=== PATIENT | female | born 1950 | race Caucasian/White ===

== ENCOUNTER 2017-01-15 13:51 | Inpatient (IN) ==
--- NOTE | 2017-01-15 13:57 | Emergency Department Note ---
Disposition Clinical Impression: Syncope Qualifiers: Syncope type: unspecified Qualified Code(s): R55 - Syncope and collapse Right fibular fracture Qualifiers: Encounter type: initial encounter Fibula location: distal Fracture type: closed Fracture morphology: unspecified fracture morphology Qualified Code(s): S82.831A - Other fracture of upper and lower end of right fibula, initial encounter for closed fracture Disposition: Admitted As Inpatient Condition: Good Reasons to Return/Additional Instructions: Take an additional calcium tablet twice a day. Return if you change your mind about admission. Referrals: NO,PCP [Primary Care Provider] - Forms: ED Satisfaction Letter Time of Disposition: 15:45 Syncope HPI - General Chief Complaint: ED Fall Stated Complaint: Fall Time Seen by Provider: 01/15/17 13:53 Source: patient, EMS Mode of arrival: EMS Limitations: no limitations Nursing Notes Reviewed: Yes Vital Signs Reviewed: Yes - History of Present Illness HPI Narrative: 66-year-old who was brushing her teeth and next thing she knows she wakes up on the floor the bathroom. She is injury to the right ankle and right knee. Unclear how long the patient was unconscious but it was a relatively short period of time. Has no history of this. She currently only complains of right knee and right ankle pain. 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 Prodromal Symptoms: none Witnessed: no Context: at rest Injuries Sustained Associated with Event: RLE Current Symptoms: none History: none Treatments prior to arrival: none Associated trauma secondary to event: Yes - Related Data Home Medications Medication Instructions Recorded Confirmed Budesonide [Entocort EC] 3 mg PO BID 11/30/15 06/27/16 Doxepin HCl 25 mg PO HS 11/30/15 06/27/16 Omeprazole [PriLOSEC] 20 mg PO DAILY 11/30/15 06/27/16 Lisinopril [Zestril] 10 mg PO DAILY 04/29/16 06/27/16 lamoTRIgine [Lamotrigine] 200 mg PO BID 04/29/16 06/27/16 Aspirin [Ecotrin] 325 mg PO DAILY 06/27/16 06/27/16 Dicyclomine [Bentyl] 10 mg PO QID 06/27/16 06/27/16 Venlafaxine XR (24 HR) [Effexor Xr] 150 mg PO HS 06/27/16 06/27/16 Zolpidem [Ambien] 10 mg PO HS PRN 06/27/16 06/27/16 Previous Rx's Medication Instructions Recorded Docusate [Colace] 100 mg PO BID #60 capsule 05/06/16 clonazePAM [Klonopin] 1 mg PO TID PRN #30 tablet 05/06/16 Aspirin Enteric Coated [Aspirin EC] 325 mg PO BID #42 tablet. 06/27/16 OxyCODONE Immed Rel [Roxicodone 5 5 - 10 mg PO Q6HR PRN #40 tablet 06/27/16 MG] Allergies Allergy/AdvReac Type Severity Reaction Status Date / Time celecoxib [From Celebrex] Allergy Rash Verified 06/27/16 14:52 All systems ED: reviewed and negative except as stated. Constitutional: Denies: fever, chills, weakness, weight change Eyes: Denies: eye pain, eye discharge, vision change ENT ED: Denies: ear pain, throat pain, dental pain, hearing loss, epistaxis, congestion, dysphagia Cardiovascular: Reports: syncope. Denies: chest pain, palpitations, dyspnea on exertion, edema Respiratory: Denies: cough, dyspnea, wheezes, hemoptysis, stridor Gastrointestinal: Denies: abdominal pain, nausea, vomiting, diarrhea, constipation, hematemesis, melena, hematochezia Genitourinary: Denies: dysuria, frequency, hematuria, discharge Musculoskeletal: Reports: arthralgia. Denies: back pain, neck pain, myalgia Integumentary: Denies: rash, abrasion, lesions Neurological: Denies: headache, weakness, numbness, paresthesias, confusion, abnormal gait, vertigo Psychiatric: Denies: anxiety, depression, suicidal thoughts, homicidal thoughts , auditory hallucinations, visual hallucinations Endocrine: Denies: fatigue Hematological/Lymphatic: Denies: easy bleeding, easy bruising Allergic/Immunologic: Denies: facial swelling, urticaria Past Medical History - Past Medical History Medical history: Reports: aortic aneurysm, arthritis, GERD, hypertension Surgical history: Reports: knee replacement, other Psychiatric history: Reports: bipolar, depression, PTSD 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 - Social History Smoking Status: Current every day smoker Smokeless Tobacco Status: No Alcohol use: Reports: occasionally Drug use: Reports: none Physical Exam - General Limitations: no limitations General appearance: alert, in no apparent distress - Head Head exam: atraumatic, normocephalic, normal inspection - Eye Eye exam: Present: normal appearance, PERRL, EOMI - ENT ENT exam: normal exam, normal oropharynx, mucous membranes moist - Neck Neck exam: Present: normal inspection, full ROM, trachea midline - Chest Chest inspection: Present: normal inspection, symmetric chest wall rise - Respiratory Respiratory exam: Present: normal lung sounds bilaterally - Cardiovascular Cardiovascular exam: Present: regular rate, normal rhythm, normal heart sounds - Abdominal Exam Abdominal exam: Present: soft, Non-Tender. Absent: tenderness, distention, guarding, rebound, rigidity - Expanded Lower Extremity Exam Knee exam: Present: normal inspection, tenderness Lower leg exam: Present: tenderness (Laterally) Neurovascular/Tendon exam: Absent: motor deficit, sensory deficit, tendon deficit Gait: not tested/not observed - Back Exam Back exam: Present: normal inspection, full ROM. Absent: tenderness - Neurological Exam Neurological exam: Present: alert, oriented X3 - Psychiatric Psychiatric exam: Present: normal affect, normal mood - Skin Skin exam: Present: warm, dry, intact, normal color Course - Reevaluation(s) Reevaluation #1: 66-year-old who was brushing her teeth suffered a syncopal episode. Workup included a nondisplaced fracture distal fibula. Her troponin was negative and EKG shows nothing acute, admit. Time: 15:43 - Consultations Consultation #1: Discussed with Dr. Mcintyre, admit Time: 15:51 Vital Signs Temperature 98.2 F 01/15/17 13:53 Pulse Rate 73 01/15/17 13:53 Respiratory Rate 18 01/15/17 13:53 Blood Pressure 130/60 01/15/17 13:53 O2 Sat by Pulse Oximetry 93 01/15/17 13:53 Temperature 98.2 F 01/15/17 13:53 Pulse Rate 70 01/15/17 15:23 Respiratory Rate 18 01/15/17 15:23 Blood Pressure 136/90 01/15/17 15:23 O2 Sat by Pulse Oximetry 98 01/15/17 15:23 Oxygen Delivery Oxygen Delivery Room Air Syncope - Lab Data Lab results reviewed: Yes I reviewed the patient's lab results. Result diagrams: 01/15/17 15:04 01/15/17 15:04 Lab Results 01/15/17 01/15/17 01/15/17 Range/Units 14:01 15:04 15:04 WBC 8.8 (4.3-11.1) K/mcL RBC 4.97 (3.82-4.97) M/mcL Hgb 15.3 (11.5-15.4) g/dL Hct 46.6 H (35.3-44.9) % MCV 93.8 (83.0-100.0) fL MCH 30.8 (28.0-33.3) pg MCHC 32.8 (31.6-35.5) g/dL RDW 14.4 (11.5-14.5) % Plt Count 310 (140-400) K/mcL MPV 9.0 L (9.4-12.4) fL Immature Gran % 0.7 (0-4) % Seg Neutrophils % 64.3 % Lymphocytes % 21.5 % Monocytes % 8.8 % Eosinophils % 3.7 % Basophils % 1.0 % Neutrophils # 5.6 (1.6-8.9) K/mcL Lymphocytes # 1.9 (0.6-4.6) K/mcL Monocytes # 0.8 (0.0-1.3) K/mcL Eosinophils # 0.3 (0.0-0.6) K/mcL Basophils # 0.1 (0.0-0.2) K/mcL Immature Plt Fraction 2.5 (1.1-6.1) % PT 9.6 (9.4-12.1) Seconds INR 0.9 APTT 37.2 H (26.0-36.0) Seconds Sodium (136-145) mEq/L Potassium (3.5-4.5) mEq/L Chloride (98-109) mEq/L Carbon Dioxide (19-29) mEq/L BUN (7-20) mg/dL Creatinine (0.57-1.11) mg/dL Est GFR ( Amer) (> 60) Est GFR (Non-Af Amer) (> 60) BUN/Creatinine Ratio (6-26) Glucose (70-99) mg/dL POC Glucose 93 H (58-89) Calculated Osmolality (280-300) Calcium (8.6-10.8) mg/dL Troponin I (0-0.03) ng/mL 01/15/17 01/15/17 Range/Units 15:04 15:04 WBC (4.3-11.1) K/mcL RBC (3.82-4.97) M/mcL Hgb (11.5-15.4) g/dL Hct (35.3-44.9) % MCV (83.0-100.0) fL MCH (28.0-33.3) pg MCHC (31.6-35.5) g/dL RDW (11.5-14.5) % Plt Count (140-400) K/mcL MPV (9.4-12.4) fL Immature Gran % (0-4) % Seg Neutrophils % % Lymphocytes % % Monocytes % % Eosinophils % % Basophils % % Neutrophils # (1.6-8.9) K/mcL Lymphocytes # (0.6-4.6) K/mcL Monocytes # (0.0-1.3) K/mcL Eosinophils # (0.0-0.6) K/mcL Basophils # (0.0-0.2) K/mcL Immature Plt Fraction (1.1-6.1) % PT (9.4-12.1) Seconds INR APTT (26.0-36.0) Seconds Sodium 139 (136-145) mEq/L Potassium 4.4 (3.5-4.5) mEq/L Chloride 106 (98-109) mEq/L Carbon Dioxide 25 (19-29) mEq/L BUN 28 H (7-20) mg/dL Creatinine 0.72 (0.57-1.11) mg/dL Est GFR ( Amer) > 60 (> 60) Est GFR (Non-Af Amer) > 60 (> 60) BUN/Creatinine Ratio 39 H (6-26) Glucose 87 (70-99) mg/dL POC Glucose (58-89) Calculated Osmolality 293 (280-300) Calcium 9.4 (8.6-10.8) mg/dL Troponin I 0.00 (0-0.03) ng/mL - Radiology Data Radiology results reviewed: Yes I reviewed the patient's radiology results. Chest X-Ray 01/15/17 13:53 IMPRESSION: Scarring versus chronic atelectasis in the lung bases. No acute process demonstrated D/ / Leighton Patel MD / Leighton Patel MD Interpreting Provider: Leighton Patel MD Head CT 01/15/17 13:53 IMPRESSION: 1. No acute intracranial abnormality. 2. Mild diffuse atrophy with mild to moderate chronic small vessel ischemic changes. D/ / Jaime Cunningham MD / Jaime Cunningham MD Interpreting Provider: Jaime Cunningham MD Ankle X-Ray 01/15/17 13:54 IMPRESSION: Distal fibula fracture D/ / Leighton Patel MD / Leighton Patel MD Interpreting Provider: Leighton Patel MD Knee X-Ray 01/15/17 13:54 IMPRESSION: 1. Right knee total arthroplasty without evidence of hardware complication. 2. No acute bony fracture identified. Perhaps minimal soft tissue swelling anteriorly. D/ / Ike Mcrae MD / Ike Mcrae MD Interpreting Provider: Ike Mcrae MD - EKG Data EKG attestation: Yes I reviewed and interpreted this EKG. EKG shows normal: sinus rhythm Rhythm: NSR Interpretation: no acute changes
[2017-01-15 15:11] LABS: Basophils # 0.1 K/mcL (0.0-0.2); Eosinophils # 0.3 K/mcL (0.0-0.6); Eosinophils % 3.7 %; Hematocrit 46.6 % (35.3-44.9); Hemoglobin 15.3 g/dL (11.5-15.4); Immature Granulocytes % 0.7 % (0-4); Immature Platelets 2.5 % (1.1-6.1); Lymphocytes # 1.9 K/mcL (0.6-4.6); Lymphocytes % 21.5 %; Mean Corpuscular HGB Conc 32.8 g/dL (31.6-35.5); Mean Corpuscular Hemoglobin 30.8 pg (28.0-33.3); Mean Corpuscular Volume 93.8 fL (83.0-100.0); Monocytes # 0.8 K/mcL (0.0-1.3); Monocytes % 8.8 %; Neutrophils # 5.6 K/mcL (1.6-8.9); Platelet Count 310 K/mcL (140-400); Red Blood Count 4.97 M/mcL (3.82-4.97); Red Cell Distribution Width 14.4 % (11.5-14.5); Segmented Neutrophils % 64.3 %
[2017-01-15 15:19] LABS: INR 0.9; Prothrombin Time 9.6 Seconds (9.4-12.1)
[2017-01-15 15:21] LABS: Activated Partial Thrombo Time 37.2 Seconds (26.0-36.0)
[2017-01-15 15:22] LABS: BUN/Creatinine Ratio 39 (6-26); Blood Urea Nitrogen 28 mg/dL (7-20); Calcium 9.4 mg/dL (8.6-10.8); Carbon Dioxide 25 mEq/L (19-29); Chloride 106 mEq/L (98-109); Glucose 87 mg/dL (70-99); Osmolality,Calculated 293 (280-300); Potassium 4.4 mEq/L (3.5-4.5); Sodium 139 mEq/L (136-145); eGFR For African Americans > 60 (> 60); eGFR For Non-African Americans > 60 (> 60)
[2017-01-15] MEDS ORDERED: *HR* Morphine 2 MG/ML SYRINGE IVP ONE (15:22)
[2017-01-15] MEDS ORDERED: Ondansetron 4 MG/2 ML VIAL IVP ONE (15:22)
[2017-01-15] MEDS ORDERED: *HR* HYDROmorphone (PF) 1 MG/ML SYRINGE IVP ONE (16:03)
[2017-01-15] MEDS ORDERED: Naloxone 0.4 MG/ML INJ IVP PRN (16:54)
[2017-01-15] MEDS ORDERED: Acetaminophen 325 MG TABLET PO PRN (16:54)
[2017-01-15] MEDS ORDERED: Ondansetron 4 MG/2 ML VIAL IVP PRN (16:54)
[2017-01-15] MEDS ORDERED: (Budesonide [Entocort Ec] 3 MG) PO PRN (17:04)
[2017-01-15] MEDS ORDERED: Aspirin Enteric Coated 325 MG Tablet PO PRN (17:04)
[2017-01-15] MEDS ORDERED: clonazePAM 1 MG TABLET PO PRN (17:04)
--- NOTE | 2017-01-15 17:22 | Internal Med History&Physical ---
<Maria AntoniaRenard Arzola - Last Filed: 01/15/17 18:23> Date of Encounter: 01/15/17 Time of Encounter: 16:30 Assessment and Plan (1) Right fibular fracture Current visit: Yes Status: Acute Assess: Mrs. West presents with chief complaint of syncope and collapse this morning. Patient reports that she was brushing her teeth when she blacked out and woke up on the bathroom floor. She states that she hurt her ankle protecting her right knee which she has had seven surgeries on in the past. X-ray of the right ankle dated today (01/15/17) shows there is an oblique fracture of the distal tibia extending to the level of the tibiotalar joint with minimal displacement. No fracture of the distal tibia is demonstrated in the ankle joint is intact. Plan: Podiatry consult ordered and confirmed NPO after midnight for possible surgery Type and screen for possible surgical intervention Falls precautions/bed rest with bedside commode/vn-xumo-irigvo status PT consult ordered OT consult ordered Qualifiers: Encounter type: initial encounter Fibula location: distal Fracture type: closed Fracture morphology: unspecified fracture morphology Qualified Code(s ): S82.831A - Other fracture of upper and lower end of right fibula, initial encounter for closed fracture (2) Syncope Current visit: Yes Status: Acute Assess: Mrs. West presents with chief complaint of syncope and collapse this morning. Patient reports that she was brushing her teeth when she blacked out and woke up on the bathroom floor. She states that she hurt her ankle protecting her right knee which she has had seven surgeries on in the past. Mrs. West states she is unsure how long she was unconscious, but woke up without assistance. She states she has no history of this in the past. CT of the head shows no acute intracranial abnormality and mild diffuse atrophy with mild to moderate chronic small vessel ischemic changes. Plan: EV echocardiogram ordered Bilateral carotid Doppler duplex imaging ordered Trend troponins x2 D-dimer ordered Continuous cardiac monitoring ordered Supplemental O2 with titration ordered Falls precautions/bed rest with bed side commode/ck-ocld-ykzlly only status Follow-up labs ordered Qualifiers: Syncope type: unspecified Qualified Code(s): R55 - Syncope and collapse (3) HTN (hypertension) Current visit: Yes Status: Acute Assess: Patient states she does not currently take any hypertension medications due to diagnosis being from previous surgeries. Cannot rule out hypotension versus hypotension as cause for patient's syncope. Patient BP and vital signs to be monitored closely during admission status. Plan: Orthostatic BPs ordered Orthostatic vital signs ordered Patient and vital signs to be monitored Will consider addition of low dose of Lopressor if patient becomes hypertensive Qualifiers: Hypertension type: unspecified secondary hypertension Qualified Code(s): I15.9 - Secondary hypertension, unspecified; I15 - Secondary hypertension (4) Fall Current visit: No Status: Acute Assess: Patient presents with acute fall resulting in fracture of right fibula. Patient denies regular dizziness but states she can become unsteady due to postsurgical status of right knee. Patient reports she currently uses walker and wheelchair as needed at home. Plan: PT consult ordered OT consult ordered Orthostatic BPs and vital signs ordered Fall precautions ordered Bed rest with bedside commode Up with assist only status Qualifiers: Encounter type: initial encounter Qualified Code(s): W19.XXXA - Unspecified fall, initial encounter (5) DVT prophylaxis Current visit: No Status: Acute Assess: Patient replaced into the prophylaxis due to admission protocol and bedrest status. Plan: Heparin 5,000 units SQ Q12 ordered. Subcutaneous heparin to be stopped if patient becomes surgical candidate for fracture repair. Internal Medicine - H&P: HPI Chief complaint: Syncope/Collapse Admitted From: Emergency Dept Plans for Post Hospital Care: Home History of present illness: Mrs. West is a 66 year old female who presents from the ED with chief complaint of syncope and collapse this morning. Patient reports that she was brushing her teeth when she blacked out and woke up on the bathroom floor. She states that she hurt her ankle protecting her right knee which she has had seven surgeries on in the past. Mrs. West states she is unsure how long she was unconscious, but woke up without assistance. She states she has no history of this in the past. She denies any injury to her head or left leg. She states that her tailbone is mildly sore. Mrs. West has history of aortic aneurysm, arthritis, and GERD. She states that she does not have hypertension and that this was due to past surgeries and she currently does not take any medication for HTN. She also states that she has mitral valve prolapse. She has a history of bipolar disorder, depression, and PTSD which she is currently not being seen by psychiatrist for. She states she has an appointment in March to see psychiatrist. She reports being depressed about current health. Patient denies dizziness, chest pain, shortness of breath, recent illness, nausea, vomiting, diarrhea, dyspnea/dyspnea with exertion, hemoptysis, hematemesis, abdominal pain , or hematochezia. Patient is at high risk for decline based on new syncopal episode. XRay of the right ankle dated today (01/15/17) shows there is an oblique fracture of the distal fibula extending to the level of the tibiotalar joint with minimal displacement. No fracture of the distal tibia is demonstrated and the ankle joint is intact. Patient is to be placed as inpatient status with podiatry consult ordered and placed. Type and screen ordered for possible surgical intervention and patient will be placed nothing by mouth after midnight for possible surgery. 2 syncopal episode, trips to be trended 2, EV echocardiogram ordered, bilateral carotid Doppler duplex imaging ordered, d-dimer ordered, continuous cardiac telemetry ordered, falls precautions/bedrest with bedside commode/upper-with patient and assist only status ordered. Orthostatic BPs and vital signs to be performed as well. Patient to be monitored closely. Time spent with patient greater than 40 minutes. Past Med Surg Social Fam HX - Past Medical History Source: patient Medical history: aortic aneurysm, arthritis, GERD, hypertension (States she does not take any medication for HTN), other (Reports she has mitral valve prolapse) Psychiatric history: bipolar, depression, PTSD - Past Surgical History Surgical History: knee replacement (Seven surgeries on right knee), other ( Breast biopsy on right breast (benign) and biopsy of right jaw (benign); tonsillectomy) - Social History Smoking Status: Current every day smoker Packs per day: 1/2 ppd Smokeless Tobacco Status: No Alcohol use: occasionally Drug use: none Current living situation: Home, With Family Activity Level: Uses cane/walker (Also reports use of wheelchair as needed) Recent Out of Country Travel Within the Last 8 Weeks: No Exposure or Possible Exposure to Illness During Travel: No - Family History Mother Race: Family Member Ethnicity: Non- Living Status: Age at : 82 Cause of : Aneurysm Hx Family Cardiac Disorders: Yes (aortic aneurysm, HTN) Hx Family Respiratory Disorders: No Hx Family Cancer: Yes (Breast cancer) Hx Family GI Disorders: No Hx Family Endocrine Disorder: No Hx Family Neuromuscular Disorders: No Hx Family Neurologic Disorders: No Hx Family HEENT Disorders: No Hx Family Autoimmune Disorders: No Father Adopted: No Race: Family Member Ethnicity: Non- Living Status: Age at : 62 Cause of : [place] Hx Family Cardiac Disorders: Yes ([place]) Hx Family Respiratory Disorders: No Hx Family Cancer: No Hx Family GI Disorders: No Hx Family Endocrine Disorder: No Hx Family Neuromuscular Disorders: No Hx Family Neurologic Disorders: No Hx Family HEENT Disorders: No Hx Family Autoimmune Disorders: No Internal Medicine - H&P: Meds Budesonide [Entocort EC] 3 mg PO BID PRN 11/30/15 [History] Doxepin HCl 25 mg PO HS 11/30/15 [History] Omeprazole [PriLOSEC] 20 mg PO DAILY PRN 11/30/15 [History] clonazePAM [Klonopin] 1 mg PO TID PRN #30 tablet 05/06/16 [Rx] Venlafaxine XR (24 HR) [Effexor Xr] 150 mg PO HS 06/27/16 [History] Zolpidem [Ambien] 10 mg PO HS PRN 06/27/16 [History] Aspirin Enteric Coated [Aspirin EC] 325 mg PO BID PRN 01/15/17 [History] Docusate [Colace] 100 mg PO BID PRN 01/15/17 [History] Quetiapine Fumarate [SEROquel] 100 mg PO HS 01/15/17 [History] Allergies celecoxib [From Celebrex] Allergy (Verified 06/27/16 14:52) Rash All Systems PM: A 10-system review of systems was performed and is negative for pertinent findings except as documented above in the HPI. - Constitutional Constitutional: as per HPI, falls - EENT Eyes: no change in vision, no discharge, no pain, no photophobia Ears: no ear discharge, no ear pain, no tinnitus Nose, mouth and throat: no dysphagia, no nasal discharge, no neck pain, no sore throat - Breasts Breasts: as per HPI - Cardiovascular Cardiovascular ROS IM: no chest pain, no diaphoresis, no dyspnea, no lightheadedness, no palpitations, no syncope - Respiratory Respiratory: no cough, no dyspnea, no wheezing, no excessive phlegm production - Gastrointestinal Gastrointestinal: no abdominal pain, no diarrhea, no hematemesis, no hematochezia, no melena, no nausea, no vomiting - Genitourinary Genitourinary: no change in urinary stream, no dysuria, no flank pain, no hematuria Menstruation: as per HPI - Musculoskeletal Musculoskeletal ROS IM: no numbness, no tingling - Integumentary Integumentary IM: no rash, no unusual bruising - Neurological Neurological ROS: no confusion, no convulsions, no focal weakness, no numbness, no tingling, no tremor(s) - Psychiatric Psychiatric: as per HPI, depression - Endocrine Endocrine IM: as per HPI - Hematologic/Lymphatic Hematologic/Lymphatic: no easy bruising - Allergic/Immunologic Allergic/Immunologic: as per HPI - Constitutional Vitals: Temp Pulse Resp BP Pulse Ox 98.2 F 70 18 150/81 98 01/15/17 13:53 01/15/17 15:23 01/15/17 17:04 01/15/17 17:04 01/15/17 15:23 General appearance: Present: cooperative, A&O X 3, pleasant, no acute distress, obese, answers questions appropriately - Head Head exam: Present: atraumatic, normocephalic - Eye Eye exam: Present: PERRL, conjuntiva pink, sclera anicteric Pupils: Present: PERRL - ENT ENT exam: Present: normal exam, normal external ear exam - Neck Neck exam general surgery: Present: supple, trachea midline. Absent: lymphadenopathy - Respiratory Respiratory exam: Present: CTAB. Absent: accessory muscle use, rales, rhonchi, wheezes - Cardiovascular Cardiovascular exam: Present: RRR, +S1, +S2. Absent: diastolic murmur, gallop, rubs, systolic murmur - GI/Abdominal GI/Abdominal exam: Present: normal bowel sounds, soft, no peritoneal signs. Absent: distended, tenderness - Rectal Rectal exam: Present: deferred - Additional comments: exam deferred. - Extremities Exam Extremities exam: Present: pedal edema (Right foot), tenderness (Right ankle with extension up right leg to below the knee), radial pulses palpable and symetrical - Back Exam Back exam: Present: normal inspection - Neurological Exam Neurological exam: Present: CN II-XII intact, oriented X3, no focal deficits. Absent: pronater drift, facial droop, speech deficit - Psychiatric Psychiatric exam: Present: normal affect, normal mood - Skin Skin exam: Present: dry, intact Internal Med - H&P Results - Labs CBC & Chem 7: 01/15/17 15:04 01/15/17 15:04 - Diagnostic Studies Chest x-ray Additional comments: Impressions Chest X-Ray 01/15/17 13:53 IMPRESSION: Scarring versus chronic atelectasis in the lung bases. No acute process demonstrated D/ / Leighton Patel MD / Leighton Patel MD Interpreting Provider: Leighton Patel MD CT scan - head Additional comments: Impressions Head CT 01/15/17 13:53 IMPRESSION: 1. No acute intracranial abnormality. 2. Mild diffuse atrophy with mild to moderate chronic small vessel ischemic changes. D/ / Jaime Cunningham MD / Jaime Cunningham MD Interpreting Provider: Jaime Cunningham MD Other Images Additional comments: Impressions Ankle X-Ray 01/15/17 13:54 IMPRESSION: Distal fibula fracture D/ / Leighton Patel MD / Leighton Patel MD Interpreting Provider: Leighton Patel MD Knee X-Ray 01/15/17 13:54 IMPRESSION: 1. Right knee total arthroplasty without evidence of hardware complication. 2. No acute bony fracture identified. Perhaps minimal soft tissue swelling anteriorly. D/ / Ike Mcrae MD / Ike Mcrae MD Interpreting Provider: Ike Mcrae MD <Ivett Jimenez E - Last Filed: 01/15/17 19:07> Date of Encounter: 01/15/17 Internal Medicine - H&P: HPI History of present illness: Ms. West is a 66 year old female All Systems PM: A 10-system review of systems was performed and is negative for pertinent findings except as documented above in the HPI. - Constitutional Vitals: Temp Pulse Resp BP Pulse Ox 98.2 F 62 16 114/71 95 01/15/17 18:40 01/15/17 18:40 01/15/17 18:40 01/15/17 18:40 01/15/17 18:45 Internal Med - H&P Results - Labs CBC & Chem 7: 01/15/17 15:04 01/15/17 15:04 - Attending Attestation I examined this patient and reviewed laboratory, imaging and all diagnostic data. My medical decision-making was reviewed with Renard Em - LITZY. I agree with the documented findings, disposition and treatment plan as described above. History and exam by me shows: syncope at home. Negative trop, ct head. Check echocardiogram, Doppler of carotids, serial troponins, telemetry.
[2017-01-15] MEDS: *HR* Heparin 5,000 UNIT/ML VIAL SQ SCH (18:29)
[2017-01-15] MEDS: *HR* HYDROcodone/Acet 5/325 mg TABLET PO PRN (20:21)
[2017-01-15] MEDS ORDERED: Venlafaxine XR (24 HR) 150 MG CAP.ER.24H PO SCH (21:00)
[2017-01-15] MEDS: *HR* Morphine 2 MG/ML SYRINGE IVP PRN (22:05)
[2017-01-16] MEDS: *HR* HYDROcodone/Acet 5/325 mg TABLET PO PRN ×3 (00:29→11:59)
[2017-01-16] MEDS: *HR* Morphine 2 MG/ML SYRINGE IVP PRN ×2 (04:08→09:25)
[2017-01-16 05:15] LABS: Basophils # 0.1 K/mcL (0.0-0.2); Basophils % 0.7 %; Eosinophils # 0.4 K/mcL (0.0-0.6); Eosinophils % 4.3 %; Hematocrit 44.5 % (35.3-44.9); Hemoglobin 14.1 g/dL (11.5-15.4); Immature Granulocytes % 0.5 % (0-4); Lymphocytes # 3.4 K/mcL (0.6-4.6); Lymphocytes % 34.8 %; Mean Corpuscular HGB Conc 31.7 g/dL (31.6-35.5); Mean Corpuscular Hemoglobin 30.5 pg (28.0-33.3); Mean Corpuscular Volume 96.1 fL (83.0-100.0); Mean Platelet Volume 9.5 fL (9.4-12.4); Monocytes % 10.5 %; Neutrophils # 4.8 K/mcL (1.6-8.9); Platelet Count 277 K/mcL (140-400); Red Blood Count 4.63 M/mcL (3.82-4.97); Red Cell Distribution Width 14.5 % (11.5-14.5); Segmented Neutrophils % 49.2 %
[2017-01-16 05:21] LABS: Prothrombin Time 10.3 Seconds (9.4-12.1)
[2017-01-16 05:33] LABS: Alanine Aminotransferase 15 Units/L (0-55); Albumin 3.2 g/dL (3.5-5.0); Albumin/Globulin Ratio 1.4 (1.1-2.2); Alkaline Phosphatase 77 Units/L (38-126); Aspartate Amino Transferase 15 Units/L (5-34); BUN/Creatinine Ratio 36 (6-26); Bilirubin,Total 0.3 mg/dL (0.2-1.2); Blood Urea Nitrogen 28 mg/dL (7-20); Calcium 9.1 mg/dL (8.6-10.8); Carbon Dioxide 29 mEq/L (19-29); Chloride 104 mEq/L (98-109); Chol/HDL Ratio 5.1 (0-4.9); Cholesterol 202 mg/dL (< 200); Globulin 2.3 g/dL (2.4-3.5); Glucose 81 mg/dL (70-99); HDL Cholesterol 40 mg/dL (40-59); LDL Cholesterol,Calculated 131 mg/dL (0-99); Magnesium 1.9 mg/dL (1.6-2.6); Osmolality,Calculated 291 (280-300); Sodium 138 mEq/L (136-145); Total Protein 5.5 g/dL (6.0-8.3); Triglycerides 155 mg/dL (< 150); eGFR For African Americans > 60 (> 60); eGFR For Non-African Americans > 60 (> 60)
[2017-01-16] MEDS: *HR* Heparin 5,000 UNIT/ML VIAL SQ SCH (05:58)
[2017-01-16] MEDS ORDERED: Pantoprazole 40 MG VIAL IVP SCH (09:00)
--- NOTE | 2017-01-16 10:03 | Electrocardiograph Report ---
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
--- NOTE | 2017-01-16 12:41 | Podiatry Consult Note ---
Date of Encounter: 01/16/17 Time of Encounter: 12:38 Assessment and Plan (1) Right fibular fracture Current visit: Yes Status: Acute Assessment: #1 distal fibular fracture secondary to syncopal episode #2 closed fracture with good position and good alignment no need for open reduction internal fixation or closed reduction at this time Plan: #1 Place patient in tall pneumatic cast boot, for protection stabilization #2 nonweightbearing use crutches and/or wheelchair or walker as necessary #3 Follow-up Dr. Guido in 1 week [phone], appointment Time. Qualifiers: Encounter type: initial encounter Fibula location: distal Fracture type: closed Fracture morphology: unspecified fracture morphology Qualified Code(s ): S82.831A - Other fracture of upper and lower end of right fibula, initial encounter for closed fracture History of Present Illness Chief complaint: Fibular fracture right side HPI: Ms. West is a 66 year old female, with syncopal episode with fracture of the lateral ankle/fibula secondary to fall. Patient presently in bed with posterior splint without complaints of significant pain. No nausea no vomiting no chest pain or shortness of breath no bowel or bladder dysfunction. Patient anxious to return home. Past Med Surg Social Fam HX - Past Medical History Medical history: aortic aneurysm, arthritis, GERD, hypertension (States she does not take any medication for HTN), other (Reports she has mitral valve prolapse) Psychiatric history: bipolar, depression, PTSD - Past Surgical History Surgical History: knee replacement (Seven surgeries on right knee), other ( Breast biopsy on right breast (benign) and biopsy of right jaw (benign); tonsillectomy) - Social History Smoking Status: Current every day smoker Packs per day: 1/2 ppd Smokeless Tobacco Status: No Alcohol use: occasionally Drug use: none - Family History Mother Race: Family Member Ethnicity: Non- Living Status: Age at : 82 Cause of : Aneurysm Hx Family Cardiac Disorders: Yes (aortic aneurysm, HTN) Hx Family Respiratory Disorders: No Hx Family Cancer: Yes (Breast cancer) Hx Family GI Disorders: No Hx Family Endocrine Disorder: No Hx Family Neuromuscular Disorders: No Hx Family Neurologic Disorders: No Hx Family HEENT Disorders: No Hx Family Autoimmune Disorders: No Father Adopted: No Race: Family Member Ethnicity: Non- Living Status: Age at : 62 Cause of : [place] Hx Family Cardiac Disorders: Yes ([place]) Hx Family Respiratory Disorders: No Hx Family Cancer: No Hx Family GI Disorders: No Hx Family Endocrine Disorder: No Hx Family Neuromuscular Disorders: No Hx Family Neurologic Disorders: No Hx Family HEENT Disorders: No Hx Family Autoimmune Disorders: No Medications and Allergies Budesonide [Entocort EC] 3 mg PO BID PRN 11/30/15 [History] Doxepin HCl 25 mg PO HS 11/30/15 [History] Omeprazole [PriLOSEC] 20 mg PO DAILY PRN 11/30/15 [History] clonazePAM [Klonopin] 1 mg PO TID PRN #30 tablet 05/06/16 [Rx] Venlafaxine XR (24 HR) [Effexor Xr] 150 mg PO HS 06/27/16 [History] Zolpidem [Ambien] 10 mg PO HS PRN 06/27/16 [History] Aspirin Enteric Coated [Aspirin EC] 325 mg PO BID PRN 01/15/17 [History] Docusate [Colace] 100 mg PO BID PRN 01/15/17 [History] Quetiapine Fumarate [SEROquel] 100 mg PO HS 01/15/17 [History] Allergies celecoxib [From Celebrex] Allergy (Verified 06/27/16 14:52) Rash All Systems Reviewed: A 10-system review of systems was performed and is negative for pertinent findings except as documented above in the HPI. Physical Exam - Constitutional Vitals: Temp Pulse Resp BP Pulse Ox 97.8 F 60 18 118/78 93 01/16/17 10:48 01/16/17 11:58 01/16/17 10:48 01/16/17 10:48 01/16/17 10:48 General appearance: average body habitus - Extremities Exam Extremities exam: Present: normal capillary refill, normal inspection, pedal edema (1/4 secondary to fracture) - Expanded Lower Extremities Exam Lower Leg exam: Present: Quyen's sign (Negative) Ankle exam: Present: swelling, tenderness (Lateral right ankle) Neuro vascular tendon exam: Present: no vascular compromise Gait: Present: not tested/not observed - Neurological Exam Neurological exam: Present: alert, oriented X3 - Psychiatric Psychiatric exam: Present: normal mood - Skin Skin exam: Present: dry, intact, normal color - Vascular Capillary Refill: less than 3 seconds Lower Extremity Vascular: no vascular compromise - Ankle & Foot Appearance ankle: swelling Effusion grade ankle exam: grade 1 Ankle pain worse with weight bearing: Yes Ankle pain relieved by non-weight bearing: Yes Alignment: normal (X-rays reveal oblique fracture distal malleolus fibula with good position good alignment.) Results - Labs Result Diagrams: 01/16/17 04:11 01/16/17 04:11 Labs: Abnormal lab results D-Dimer 1396 ng/mLFEU (0-500) H 01/15/17 22:11 BUN 28 mg/dL (7-20) H 01/16/17 04:11 BUN/Creatinine Ratio 36 (6-26) H 01/16/17 04:11 POC Glucose 93 (58-89) H 01/15/17 14:01 Serum Total Protein 5.5 g/dL (6.0-8.3) L 01/16/17 04:11 Albumin 3.2 g/dL (3.5-5.0) L 01/16/17 04:11 Globulin 2.3 g/dL (2.4-3.5) L 01/16/17 04:11 Triglycerides 155 mg/dL (< 150) H 01/16/17 04:11 Cholesterol 202 mg/dL (< 200) H 01/16/17 04:11 LDL Cholesterol, Calc 131 mg/dL (0-99) H 01/16/17 04:11 VLDL Cholesterol, Calc 31 mg/dL (< 31) H 01/16/17 04:11 Cholesterol/HDL Ratio 5.1 (0-4.9) H 01/16/17 04:11 Antibody Screen POSITIVE A 01/15/17 17:20 H & H 01/16/17 Range/Units 04:11 Hgb 14.1 (11.5-15.4) g/dL Hct 44.5 (35.3-44.9) % All other labs normal. - Diagnostic results Ankle/Foot x-ray: report reviewed, image reviewed Consult Discharge Plan - Plan Referrals: NO,PCP [Primary Care Provider] -
--- NOTE | 2017-01-16 13:13 | Cardiology Consult Note ---
Date of Encounter: 01/16/17 Time of Encounter: 13:00 Assessment and Plan (1) Syncope Current Visit: Yes Status: Acute Reported syncopal episode resulting in RLE fracture. Unclear etiology. Patient states she is unsure if she lost consciousness--similar episode in the past. Home medications may have provoked episode. Telemetry reviewed, avg HR=77. No AVB, pause, arrhythmia, or event noted. ECG upon presentation demonstrates NSR. Echocardiogram/carotid US pending. Check orthostatics. Further recommendations to follow. Qualifiers: Syncope type: unspecified Qualified Code(s): R55 - Syncope and collapse Discussion w patient/family: The assessment and plan as outlined above was discussed with the patient and/or family members who expressed understanding and agreement. All questions were answered. Thank you for involving us in the care of your patient. Please call with any questions. The patient will be discussed and reviewed with Dr. Bart Hernandez; changes to be made accordingly. History of Present Illness Consult date: 01/16/17 Requesting physician: Renard Em Consult reason: Syncope Chief complaint: Fall History of present illness: Ms. West is a 66 year old female with PMH significant for GERD, bipolar disorder , tobacco use, and arthritis who presented to the ED after fall that occurred yesterday. She reports she was standing up at the sinking brushing/polishing her teeth when she suddenly fell. She is unsure if she lost consciousness, if she did, she states was a split second. Fall resulted in fracture of right lower extremity. Denies pre-syncopal symptoms or change in usual health leading up to event. Reports similar episode in the past, occurred after she was standing for a prolonged period of time. Denies new medications. Past Med Surg Social Fam HX - Past Medical History Attestation: Yes The following information was validated with the patient. Source: patient Medical history: aortic aneurysm, arthritis, GERD, valvular heart disease ( reported hx of MVP) Psychiatric history: bipolar, depression, PTSD - Past Surgical History Surgical History: knee replacement (Seven surgeries on right knee), other ( Breast biopsy on right breast (benign) and biopsy of right jaw (benign); tonsillectomy) - Social History Smoking Status: Current every day smoker Packs per day: 1/2 ppd Smokeless Tobacco Status: No Alcohol use: occasionally (Reports x2 drinks liquor/month (2oz). ) Drug use: none - Family History Mother Race: Family Member Ethnicity: Non- Living Status: Age at : 82 Cause of : Aneurysm Hx Family Cardiac Disorders: Yes (aortic aneurysm, HTN) Hx Family Respiratory Disorders: No Hx Family Cancer: Yes (Breast cancer) Hx Family GI Disorders: No Hx Family Endocrine Disorder: No Hx Family Neuromuscular Disorders: No Hx Family Neurologic Disorders: No Hx Family HEENT Disorders: No Hx Family Autoimmune Disorders: No Father Adopted: No Race: Family Member Ethnicity: Non- Living Status: Age at : 62 Cause of : [place] Hx Family Cardiac Disorders: Yes ([place]) Hx Family Respiratory Disorders: No Hx Family Cancer: No Hx Family GI Disorders: No Hx Family Endocrine Disorder: No Hx Family Neuromuscular Disorders: No Hx Family Neurologic Disorders: No Hx Family HEENT Disorders: No Hx Family Autoimmune Disorders: No Medications and Allergies Budesonide [Entocort EC] 3 mg PO BID PRN 11/30/15 [History] Doxepin HCl 25 mg PO HS 11/30/15 [History] Omeprazole [PriLOSEC] 20 mg PO DAILY PRN 11/30/15 [History] clonazePAM [Klonopin] 1 mg PO TID PRN #30 tablet 05/06/16 [Rx] Venlafaxine XR (24 HR) [Effexor Xr] 150 mg PO HS 06/27/16 [History] Zolpidem [Ambien] 10 mg PO HS PRN 06/27/16 [History] Aspirin Enteric Coated [Aspirin EC] 325 mg PO BID PRN 01/15/17 [History] Docusate [Colace] 100 mg PO BID PRN 01/15/17 [History] Quetiapine Fumarate [SEROquel] 100 mg PO HS 01/15/17 [History] Allergies celecoxib [From Celebrex] Allergy (Verified 06/27/16 14:52) Rash All Systems Review: A 10-system review of systems was performed and is negative for pertinent findings except as documented above in the HPI. - Cardiovascular Cardiovascular: as per HPI Physical Examination Vital Signs, Last 4 Hours Temp Pulse Resp BP Pulse Ox 01/16/17 11:58 60 01/16/17 10:48 97.8 F 51 18 118/78 93 01/16/17 09:14 126/77 94 General: Conversant, No Apparent Distress HEENT: Atraumatic, Normocephaly Cardiac: Reg Rate and Rhythm, Normal S1 and S2 Lungs: Normal Breath Sounds Neuro: Alert and responsive Abdomen: Soft Skin: No rashes noted on visualized skin Musculoskeletal: No Chest Wall Tenderness Extremities: Other (RLE soft cast. ) Results 01/16/17 04:11 01/16/17 04:11 Lab Results 01/15/17 01/15/17 01/16/17 22:11 22:11 04:11 WBC 9.6 Hgb 14.1 Hct 44.5 Plt Count 277 INR APTT D-Dimer 1396 H Sodium Potassium Chloride Carbon Dioxide BUN Creatinine Glucose Calcium Magnesium Total Bilirubin AST ALT Alkaline Phosphatase Troponin I 0.01 01/16/17 01/16/17 01/16/17 04:11 04:11 04:11 WBC Hgb Hct Plt Count INR 1.0 APTT 36.0 D-Dimer Sodium 138 Potassium 4.0 Chloride 104 Carbon Dioxide 29 BUN 28 H Creatinine 0.78 Glucose 81 Calcium 9.1 Magnesium 1.9 Total Bilirubin 0.3 AST 15 ALT 15 Alkaline Phosphatase 77 Troponin I 0.00 - Imaging and Cardiology Echo: pending Other Results: Tele: avg HR=77 SR. No significant pause, AVB noted. - EKG Interpretation EKG results cardiology: personally reviewed Consult Discharge Plan - Plan Referrals: NO,PCP [Primary Care Provider] -
--- NOTE | 2017-01-16 13:32 | Internal Med Progress Note ---
<Renard Dickens - Last Filed: 01/16/17 13:29> Date of Encounter: 01/16/17 Time of Encounter: 09:10 - Assessment and plan (1) Syncope Current Visit: Yes Status: Acute Assessment and plan: Patient demonstrated syncope with acute onset with no preceding symptoms while standing brushing her teeth. She has had one previous episode of syncope and denies any cardiac history. She denies any recent fevers chills or sweating, recent infections. - Upon admission patient had echocardiogram, Doppler of the carotids ordered, telemetry, with some results still pending. - Suspecting cardiogenic syncope after the patient had acute onset of symptoms, patient's telemetry demonstrates episodes of bradycardia. - Home medications were reviewed which demonstrate multiple antipsychotic medications, sleep aids and pain medication. - Cardiology consult did and evaluated the patient regarding her syncopal episodes. Patient may benefit from outpatient cardiac monitoring. Qualifiers: Syncope type: unspecified Qualified Code(s): R55 - Syncope and collapse (2) Right fibular fracture Current Visit: Yes Status: Acute Assessment and plan: Patient sustained a right distal fibular fracture after mechanical fall likely secondary to syncopal episode in her bathroom at home. Patient artery has difficult mobility and usually moves around in a wheelchair with occasional transfers. -Podiatry has been consult that and is involved in the patient's care. With plans to place her in a pneumatic cast boot for protection and stabilization. They recommend nonweightbearing use of crutches and/or wheelchair. Plan: - Per podiatry continue with medical management. Qualifiers: Encounter type: initial encounter Fibula location: distal Fracture type: closed Fracture morphology: unspecified fracture morphology Qualified Code(s ): S82.831A - Other fracture of upper and lower end of right fibula, initial encounter for closed fracture (3) HLD (hyperlipidemia) Current Visit: No Status: Chronic Assessment and plan: Patient's laboratory results demonstrate hyperlipidemia. - Recommend low fat and cholesterol diet. Qualifiers: Hyperlipidemia type: unspecified Qualified Code(s): E78.5 - Hyperlipidemia , unspecified (4) Bipolar 1 disorder Current Visit: No Status: Chronic Assessment and plan: Continue home medications. (5) Tobacco abuse Current Visit: No Status: Chronic Assessment and plan: Patient admits to half a pack a day for 50 years. - Smoking cessation recommended. - Nicotine patch offered. (6) HTN (hypertension) Current Visit: Yes Status: Acute Qualifiers: Hypertension type: unspecified secondary hypertension Qualified Code(s): I15.9 - Secondary hypertension, unspecified; I15 - Secondary hypertension (7) DVT prophylaxis Current Visit: No Status: Acute Assessment and plan: Subcutaneous heparin 5000 units every 12 hours. (8) Insomnia Current Visit: Yes Status: Acute Assessment and plan: Patient is taking Effexor 150 mrem by mouth at bedtime, Ambien 5 mg by mouth at bedtime, doxepin 25 mg by mouth at bedtime. - Multiple antipsychotic medications and SSRIs with sleep aids. - Reduced needs as tolerated. Qualifiers: Qualified Code(s): G47.00 - Insomnia, unspecified - Subjective Interval history: Ms. West 66-year-old female was seen about a patient bedside this morning. She is alert awake interactive distress. She denies any significant pain but is upset about her current fracture. Discussion regarding the symptoms that led up to her syncopal episode she said she was standing at the bathroom sink brushing her teeth when she blacked out and woke up with her back and hitting the floor, denies hitting her head. She said she attempted to protects her knee from injury as she has undergone 7 right knee surgeries in the past and ended up with a fractured a right distal fibula. He denies any numbness tingling sensation or any concerning symptoms in her right lower extremity. She has any fevers, chills, nausea vomiting diarrhea constipation, chest pain or shortness of breath. She has no other concerning symptoms at this time. - Constitutional Vitals: Temp Pulse Resp BP Pulse Ox 97.8 F 60 18 118/78 93 01/16/17 10:48 01/16/17 11:58 01/16/17 10:48 01/16/17 10:48 01/16/17 10:48 General appearance: Present: cooperative, A&O X 3, pleasant, no acute distress, obese, answers questions appropriately Exam: General: Patient alert, awake, oriented 3, interactive, in no acute distress HEENT: Normocephalic, atraumatic, pupils equal reactive to light, nasal cavity patent and open septum median position, oral mucosa moist, uvula midline, neck supple trachea midline no palpable lymphadenopathy, no thyromegaly. Chest: Symmetric bilateral correlating with respiratory effort, effort nonlabored. Cardiac: Regular rate and rhythm, positive S1, S2, no bruits appreciated bilateral carotids, Radial pulses 2+ bilateral, posterior tibial and dorsal pedal pulses 2+ bilateral. Respiratory: Clear to auscultation all lung fox Abdomen: Soft, nontender, positive bowel sounds, no palpable masses appreciated on examination Extremities: Right knee demonstrates chronic swelling with previous surgical scars, right lower extremity is in a syringe and splint. Toes of the right foot demonstrate appropriate skin color, warmth, no signs of edema or erythema. Appropriate capillary refill is, patient retains sensation to touch. No signs of limb distress. Patient is moving all 4 limbs spontaneously.. Neurologic: No focal deficits appreciated on examination. Face symmetric, muscle strength symmetric bilateral upper and lower extremities. Internal Medicine: Result - Labs CBC & Chem 7: 01/16/17 04:11 01/16/17 04:11 Labs: Short CBC 01/16/17 Range/Units 04:11 WBC 9.6 (4.3-11.1) K/mcL Hgb 14.1 (11.5-15.4) g/dL Hct 44.5 (35.3-44.9) % Plt Count 277 (140-400) K/mcL Neutrophils # 4.8 (1.6-8.9) K/mcL BMP 01/16/17 04:11 Sodium 138 Potassium 4.0 Chloride 104 Carbon Dioxide 29 BUN 28 H Creatinine 0.78 Glucose 81 Calcium 9.1 Cardiac Enzymes 01/15/17 01/16/17 Range/Units 22:11 04:11 Troponin I 0.01 0.00 (0-0.03) ng/mL Liver Function 01/16/17 Range/Units 04:11 Total Bilirubin 0.3 (0.2-1.2) mg/dL AST 15 (5-34) Units/L ALT 15 (0-55) Units/L Alkaline Phosphatase 77 (38-126) Units/L Albumin 3.2 L (3.5-5.0) g/dL - ABG Interpretation ABG results: PT/INR, D-dimer PT 10.3 Seconds (9.4-12.1) 01/16/17 04:11 D-Dimer 1396 ng/mLFEU (0-500) H 01/15/17 22:11 - VTE Documentation of Mechanical Device: Intermittent pneumatic compression device Consult Discharge Plan - Plan Referrals: NO,PCP [Primary Care Provider] - <José Miguel Oakes - Last Filed: 01/16/17 15:15> Date of Encounter: 01/16/17 - Constitutional Vitals: Temp Pulse Resp BP Pulse Ox 98.5 F 61 18 109/73 93 01/16/17 14:57 01/16/17 14:57 01/16/17 14:57 01/16/17 14:57 01/16/17 14:57 Internal Medicine: Result - Labs CBC & Chem 7: 01/16/17 04:11 01/16/17 04:11 Labs: Short CBC 01/16/17 Range/Units 04:11 WBC 9.6 (4.3-11.1) K/mcL Hgb 14.1 (11.5-15.4) g/dL Hct 44.5 (35.3-44.9) % Plt Count 277 (140-400) K/mcL Neutrophils # 4.8 (1.6-8.9) K/mcL BMP 01/16/17 04:11 Sodium 138 Potassium 4.0 Chloride 104 Carbon Dioxide 29 BUN 28 H Creatinine 0.78 Glucose 81 Calcium 9.1 Cardiac Enzymes 01/15/17 01/16/17 Range/Units 22:11 04:11 Troponin I 0.01 0.00 (0-0.03) ng/mL Liver Function 01/16/17 Range/Units 04:11 Total Bilirubin 0.3 (0.2-1.2) mg/dL AST 15 (5-34) Units/L ALT 15 (0-55) Units/L Alkaline Phosphatase 77 (38-126) Units/L Albumin 3.2 L (3.5-5.0) g/dL - ABG Interpretation ABG results: PT/INR, D-dimer PT 10.3 Seconds (9.4-12.1) 01/16/17 04:11 D-Dimer 1396 ng/mLFEU (0-500) H 01/15/17 22:11 - Attending Attestation I examined this patient and my medical decision-making was reviewed with the [employer]INE [employer]W/PA/Advanced Practice Nurse/Resident Physician. I agree with the documented findings, disposition and treatment plan as described except to the extent set forth below. Agree with Dr. Alfonso. Medications possible etiology of syncope, follow echo and syncope workup.
[2017-01-16 14:59] VITALS: BP 109/73
--- NOTE | 2017-01-16 15:39 | Discharge Summary ---
<Renard Dickens Mao - Last Filed: 01/16/17 16:04> Date of Encounter: 01/16/17 Time of Encounter: 15:35 - Discharge Diagnosis (1) Syncope Priority: Primary Status: Acute Qualifiers: Syncope type: unspecified Qualified Code(s): R55 - Syncope and collapse (2) Right fibular fracture Priority: Primary Status: Acute Qualifiers: Encounter type: initial encounter Fibula location: distal Fracture type: closed Fracture morphology: unspecified fracture morphology Qualified Code(s ): S82.831A - Other fracture of upper and lower end of right fibula, initial encounter for closed fracture (3) HLD (hyperlipidemia) Priority: Secondary Status: Chronic Qualifiers: Hyperlipidemia type: unspecified Qualified Code(s): E78.5 - Hyperlipidemia , unspecified (4) Bipolar 1 disorder Priority: Secondary Status: Chronic (5) Tobacco abuse Priority: Secondary Status: Chronic (6) HTN (hypertension) Priority: Secondary Status: Acute Qualifiers: Hypertension type: unspecified secondary hypertension Qualified Code(s): I15.9 - Secondary hypertension, unspecified; I15 - Secondary hypertension (7) DVT prophylaxis Priority: Secondary Status: Acute (8) Insomnia Priority: Secondary Status: Acute Qualifiers: Qualified Code(s): G47.00 - Insomnia, unspecified - Discharge Medications Prescriptions: HYDROcodone/Acet 5/325 mg [[place] 5-325 mg] 1 tab PO Q6H PRN #12 tablet PRN Reason: Moderate Pain (4-6) Zolpidem [Ambien] 5 mg PO HS PRN #7 tablet PRN Reason: Sleep Home Medications: Budesonide [Entocort EC] 3 mg PO BID PRN 11/30/15 [History] Doxepin HCl 25 mg PO HS 11/30/15 [History] Omeprazole [PriLOSEC] 20 mg PO DAILY PRN 11/30/15 [History] clonazePAM [Klonopin] 1 mg PO TID PRN #30 tablet 05/06/16 [Rx] Venlafaxine XR (24 HR) [Effexor Xr] 150 mg PO HS 06/27/16 [History] Aspirin Enteric Coated [Aspirin EC] 325 mg PO BID PRN 01/15/17 [History] Docusate [Colace] 100 mg PO BID PRN 01/15/17 [History] Quetiapine Fumarate [Seroquel] 100 mg PO HS 01/15/17 [History] HYDROcodone/Acet 5/325 mg [[place] 5-325 mg] 1 tab PO Q6H PRN #12 tablet 01/16/17 [Rx] Zolpidem [Ambien] 5 mg PO HS PRN #7 tablet 01/16/17 [Rx] Allergies/Adverse Reactions: Allergies celecoxib [From Celebrex] Allergy (Verified 06/27/16 14:52) Rash Procedures/tests Complete & Pending: Procedures Performed prior 72 hours Category Date Time Status EV carotid duplex imaging BI Routine Y 01/16/17 17:18 Completed EV echocardiogram Routine Y 01/16/17 17:17 Completed Date of admission: 01/15/17 16:54 Primary care physician: PCP NO Consults: 01/15/17 17:10 Consult to Podiatry [CONS] Routine Consulting Provider: [facility] Reason for Consult: Fracture of distal fibula extending to level of tibiotalar joint with minimal displacement. Call Completed: Yes 01/15/17 18:14 Consult to Pastoral Services [CONS] Routine Comment: 01/16/17 11:35 Consult to Cardiology [CONS] Routine Comment: Consulting Provider: [facility] Reason for Consult: syncope, telemetry shows episode of bradycardia. Call Completed: Yes Discharging clinician: Renard Dickens Anticipated date of discharge: 01/16/17 - Patient Status Disposition: Home, Self-Care Condition: Good Functional capacity at discharge: wheelchair bound Overall status at discharge: patient is progressing back to baseline - Discharge Instructions Instructions: Syncope (DC) Follow Up With: NO,PCP [Primary Care Provider] - Bart Guido DPM [Partnered Physician] - Additional Instructions: 1. Follow-up with your primary care provider in the next 3-5 days for reevaluation 2. Take all prescriptions as prescribed, any concerns or questions contact her primary care provider. 3. Return to the emergency department if: Increase in swelling in the right foot with pain, loss of sensation, decrease in blood flow, foot feels cold, and lightheaded, chest pain, chest pressure, palpitations, dizziness or fainting or passing out, nausea and vomiting or any new or concerning medical symptoms or signs Instructions per Podiatry: #1 nonweightbearing use crutches and/or wheelchair or walker as necessary #2 Follow-up Dr. Guido in 1 week [phone], appointment Time. . - Diet and Activity Activity: other (Activity as recommended by podiatry.) Diet: low fat, low cholesterol Interval History: Mrs. West 66F with past medical history of everyday smoking, 7 repeat surgeries of her right knee, limited mobility, bipolar, depression, PTSD, aortic aneurysm , arthritis, GERD was admitted to the inpatient unit after she suffered a syncopal episode at home resulting in oblique fracture of the distal fibula extending to the level of the tibiotalar joint with minimal displacement. Podiatry was consulted to evaluate the patient's fracture. It was determined to proceed with medical management the patient was placed in a pneumatic cast boot for protection and stabilization, recommended nonweightbearing using crutches and/or wheelchair or walker as necessary and follow up with Dr. Guido in one week. The patient underwent echocardiogram, carotid Doppler, placed on telemetry for syncopal event at home. Her home medications were reviewed which demonstrated multiple antipsychotics, antidepressants and medications for insomnia. Telemetry demonstrated sinus bradycardia down to 52. Cardiology was consulted and evaluated the patient. After evaluation cardiology was okay with discharge from a cardiology standpoint. The patient's vitals remained stable throughout her inpatient stay. After evaluation the patient was deemed stable for discharge recommended to follow podiatry's recommendations. The patient was highly recommended to follow-up with her primary care provider next 3-[address] Guido in one week. Hospital course: Ms. West is a 66 year old female - Time Spent with Patient Total time spent providing and/or coordinating discharge services: - Constitutional Vitals: Temp Pulse Resp BP Pulse Ox 98.5 F 61 18 109/73 93 01/16/17 14:57 01/16/17 14:57 01/16/17 14:57 01/16/17 14:57 01/16/17 14:57 General appearance: Present: cooperative, A&O X 3, pleasant, no acute distress, obese, answers questions appropriately Exam: General: Patient alert, awake, oriented 3, interactive, in no acute distress HEENT: Normocephalic, atraumatic, pupils equal reactive to light, nasal cavity patent and open septum median position, oral mucosa moist, uvula midline, neck supple trachea midline no palpable lymphadenopathy, no thyromegaly. Chest: Symmetric bilateral correlating with respiratory effort, effort nonlabored. Cardiac: Regular rate and rhythm, positive S1, S2, no bruits appreciated bilateral carotids, Radial pulses 2+ bilateral, posterior tibial and dorsal pedal pulses 2+ bilateral. Respiratory: Clear to auscultation all lung fox Abdomen: Soft, nontender, positive bowel sounds, no palpable masses appreciated on examination Extremities: Right knee demonstrates chronic swelling with previous surgical scars, right lower extremity is in a syringe and splint. Toes of the right foot demonstrate appropriate skin color, warmth, no signs of edema or erythema. Appropriate capillary refill is, patient retains sensation to touch. No signs of limb distress. Patient is moving all 4 limbs spontaneously.. Neurologic: No focal deficits appreciated on examination. Face symmetric, muscle strength symmetric bilateral upper and lower extremities. - VTE Documentation of Mechanical Device: Intermittent pneumatic compression device <José Miguel Oakes - Last Filed: 01/16/17 16:12> Date of Encounter: 01/16/17 Procedures/tests Complete & Pending: Procedures Performed prior 72 hours Category Date Time Status EV carotid duplex imaging BI Routine Y 01/16/17 17:18 Completed EV echocardiogram Routine Y 01/16/17 17:17 Completed Date of admission: 01/15/17 16:54 Primary care physician: PCP NO Consults: 01/15/17 17:10 Consult to Podiatry [CONS] Routine Consulting Provider: [facility] Reason for Consult: Fracture of distal fibula extending to level of tibiotalar joint with minimal displacement. Call Completed: Yes 01/15/17 18:14 Consult to Pastoral Services [CONS] Routine Comment: 01/16/17 11:35 Consult to Cardiology [CONS] Routine Comment: Consulting Provider: [facility] Reason for Consult: syncope, telemetry shows episode of bradycardia. Call Completed: Yes Hospital course: Ms. West is a 66 year old female - Time Spent with Patient Total time spent providing and/or coordinating discharge services: - Constitutional Vitals: Temp Pulse Resp BP Pulse Ox 98.5 F 61 18 109/73 93 01/16/17 14:57 01/16/17 14:57 01/16/17 14:57 01/16/17 14:57 06/12/17 14:57 - Attending Attestation I examined this patient and my medical decision-making was reviewed with the TAKER OFF BRAKER MACHINE/PA/Advanced Practice Nurse/Resident Physician. I agree with the documented findings, disposition and treatment plan as described except to the extent set forth below. Cardiology input noted, no additional workup. Podiatry consult appreciated, patient will be discharged home today, outpatient follow up with podiatry.
--- NOTE | 2017-01-16 17:31 | Carotid Imaging Report ---
Carotid Duplex Patient Name:Leslie West Order Number:[id number] Procedure Date:01/16/2017 Date:1950ge:66 yrs Gender:Female Lt BP:100 / 63 mmHg Rt.BP:95 / 63 mmHgHeart Rate: Location:[facility] Room #: 3OH34 Farmworker [employer]:Mayra White, RDCS, RVT Referring MD:Renard Em, BROADCAST TRAFFIC COORDINATOR commodities trader:None Reading MD:Leighton Nieves MD , FACS Primary Indications:Syncope Risk Factors Yes/No Hypertension Yes Hypercholesterolemia No Diabetes No Hx of TIA No Hx of CVA No Smoking Current Yes Impressions: The bilateral carotid arteries have minimal plaque throughout. Recommendations: After imaging the patient returned to their room. Findings Carotid Duplex: Right: There is nonstenotic plaque in the right bifurcation. There is irregular heterogeneous plaque. There is nonstenotic plaque in the right proximal internal carotid artery. There is irregular heterogeneous plaque. There is nonstenotic plaque in the right mid internal carotid artery. There is irregular homogeneous plaque. There is antegrade spectral Doppler flow patterns in the right vertebral artery. Left: There is nonstenotic plaque in the left bifurcation. There is irregular heterogeneous plaque. There is antegrade spectral Doppler flow patterns in the left vertebral artery. Prior Study: No prior study available for comparison. Carotid Results Right PSV EDV Assessment Proximal CCA 64 23 Normal Mid CCA 67 22 Normal Distal CCA 65 21 Normal Bifurcation 54 15 Non Stenotic Plaque Proximal ICA 80 28 Non Stenotic Plaque Mid ICA 75 26 Non Stenotic Plaque Distal ICA 90 26 Normal ECA 85 10 Normal Vertebral Artery 51 22 Antegrade Flow Left PSV EDV Assessment Proximal CCA 64 12 Normal Mid CCA 70 20 Normal Distal CCA 60 22 Normal Bifurcation 56 17 Non Stenotic Plaque Proximal ICA 91 30 Normal Mid ICA 81 24 Normal Distal ICA 78 32 Normal ECA 85 13 Normal Vertebral Artery 42 13 Antegrade Flow Ratio's Right ICA/CCA Ratio: 1.34 ICA/CCA Values: 90/67 Left ICA/CCA Ratio: 1.30 ICA/CCA Values: 91/70 Updated by Luis Miguel Howard MD on 01/16/2017 5:23:39 PM electronically signed on 01/16/2017 5:24:00 PM with status of Final
[2017-01-17] MEDS ORDERED: Nicotine 14 MG PATCH.TD24 TD SCH (09:00)
== END 2017-01-16 17:00 | disposition home or self-care (01) | DRG 563 ==
LOC: 3NENU 13:51 → EMEROO 13:51 → 3NENU 17:43
PROVIDERS: ADMIT Internal Medicine; ATTEND Internal Medicine Endocrinology, Diabetes & Metabolism

== ENCOUNTER 2018-06-14 13:13 | Inpatient (IN) ==
--- NOTE | 2018-06-14 13:17 | Emergency Department Note ---
Disposition Clinical Impression: Facial numbness, Left arm numbness, Pneumonia Disposition: Admitted As Inpatient Condition: Fair General Adult HPI - General Stated complaint: Stroke Time Seen by Provider: 06/14/18 13:15 - Related Data Home Medications Medication Instructions Recorded Confirmed RX: Doxepin HCl 25 mg PO HS 11/30/15 01/15/17 RX: Omeprazole [PriLOSEC] 20 mg PO DAILY PRN 11/30/15 01/15/17 RX: Venlafaxine XR (24 HR) 150 mg PO HS 06/27/16 01/15/17 [Effexor Xr] RX: Aspirin Enteric Coated 325 mg PO BID PRN 01/15/17 01/15/17 [Aspirin EC] RX: Docusate [Colace] 100 mg PO BID PRN 01/15/17 01/15/17 Budesonide [Entocort EC] 3 mg PO BID 06/14/18 Quetiapine Fumarate [Seroquel] 200 mg PO HS 06/14/18 Previous Rx's Medication Instructions Recorded RX: clonazePAM [Klonopin] 1 mg PO TID PRN #30 tablet 05/06/16 RX: HYDROcodone/Acet 5/325 mg 1 tab PO Q6H PRN #12 tablet 01/16/17 [[place] 5-325 mg] RX: Zolpidem [Ambien] 5 mg PO HS PRN #7 tablet 01/16/17 Allergies Allergy/AdvReac Type Severity Reaction Status Date / Time celecoxib [From Celebrex] Allergy Rash Verified 06/27/16 14:52 Past Medical History - Past Medical History Medical history: Reports: aortic aneurysm, arthritis, GERD, valvular heart disease Surgical history: Reports: knee replacement (Seven surgeries on right knee), other (Breast biopsy on right breast (benign) and biopsy of right jaw (benign); tonsillectomy) Psychiatric history: Reports: bipolar, depression, PTSD MAIL HANDLER history: Reports: no MAIL HANDLER history - Social History Smoking Status: Current every day smoker Smokeless Tobacco Status: No Alcohol use: Reports: occasionally Drug use: Reports: none Course Vital Signs Temperature 98.5 F 06/14/18 13:15 Pulse Rate 85 06/14/18 13:15 Respiratory Rate 19 06/14/18 13:15 Blood Pressure 120/107 06/14/18 13:15 O2 Sat by Pulse Oximetry 94 06/14/18 13:15 Temperature 98.6 F 06/14/18 17:11 Pulse Rate 87 06/14/18 17:11 Respiratory Rate 16 06/14/18 17:11 Blood Pressure 137/73 06/14/18 17:11 O2 Sat by Pulse Oximetry 99 06/14/18 17:11 Oxygen Delivery Oxygen Delivery Room Air Medical Decision Making - Lab Data Result diagrams: 06/14/18 14:45 06/14/18 14:45 Lab Results 06/14/18 06/14/18 06/14/18 Range/Units 14:23 14:31 14:45 WBC 12.1 H (4.3-11.1) K/mcL RBC 4.90 (3.82-4.97) M/mcL Hgb 15.8 H (11.5-15.4) g/dL Hct 48.1 H (35.3-44.9) % MCV 98.2 (83.0-100.0) fL MCH 32.2 (28.0-33.3) pg MCHC 32.8 (31.6-35.5) g/dL RDW 15.0 H (11.5-14.5) % Plt Count 286 (140-400) K/mcL MPV 9.6 (9.4-12.4) fL PT (9.4-12.1) Seconds INR APTT (26.0-36.0) Seconds Sodium (136-145) mEq/L Potassium (3.5-5.1) mEq/L Chloride (98-107) mEq/L Carbon Dioxide (23-29) mEq/L BUN (8-23) mg/dL Creatinine (0.60-1.20) mg/dL Est GFR ( Amer) (> 60) Est GFR (Non-Af Amer) (> 60) BUN/Creatinine Ratio (6-26) Glucose (70-105) mg/dL POC Glucose 105 H (70-99) mg/dL Calculated Osmolality (280-300) Lactic Acid (0.5-2.2) mmol/L Calcium (8.6-10.3) mg/dL Troponin I (< 0.04) ng/mL B-Natriuretic Peptide (Less than 100) pg/mL Urine Color Yellow (Yellow) Urine Clarity Clear (Clear) Urine pH 7.5 (5.0-8.0) pH Units Ur Specific [place] 1.017 (1.010-1.025) Urine Protein Negative (Neg-Trace) mg/dL Urine Glucose (UA) Normal (Normal) mg/dL Urine Ketones Negative (Negative) mg/dL Urine Blood Negative (Negative) Urine Nitrite Negative (Negative) Urine Bilirubin Negative (Negative) Urine Urobilinogen Normal (Normal) mg/dL Ur Leukocyte Esterase Negative (Negative) Ur Culture Indicated? NO (NO) 06/14/18 06/14/18 06/14/18 Range/Units 14:45 14:45 14:45 WBC (4.3-11.1) K/mcL RBC (3.82-4.97) M/mcL Hgb (11.5-15.4) g/dL Hct (35.3-44.9) % MCV (83.0-100.0) fL MCH (28.0-33.3) pg MCHC (31.6-35.5) g/dL RDW (11.5-14.5) % Plt Count (140-400) K/mcL MPV (9.4-12.4) fL PT 10.2 (9.4-12.1) Seconds INR 0.9 APTT 38.3 H (26.0-36.0) Seconds Sodium 141 (136-145) mEq/L Potassium 4.1 (3.5-5.1) mEq/L Chloride 107 (98-107) mEq/L Carbon Dioxide 30 H (23-29) mEq/L BUN 17 (8-23) mg/dL Creatinine 0.68 (0.60-1.20) mg/dL Est GFR ( Amer) > 60 (> 60) Est GFR (Non-Af Amer) > 60 (> 60) BUN/Creatinine Ratio 25 (6-26) Glucose 102 (70-105) mg/dL POC Glucose (70-99) mg/dL Calculated Osmolality 294 (280-300) Lactic Acid (0.5-2.2) mmol/L Calcium 9.4 (8.6-10.3) mg/dL Troponin I < 0.03 (< 0.04) ng/mL B-Natriuretic Peptide 29 (Less than 100) pg/mL Urine Color (Yellow) Urine Clarity (Clear) Urine pH (5.0-8.0) pH Units Ur Specific [place] (1.010-1.025) Urine Protein (Neg-Trace) mg/dL Urine Glucose (UA) (Normal) mg/dL Urine Ketones (Negative) mg/dL Urine Blood (Negative) Urine Nitrite (Negative) Urine Bilirubin (Negative) Urine Urobilinogen (Normal) mg/dL Ur Leukocyte Esterase (Negative) Ur Culture Indicated? (NO) 06/14/18 Range/Units 15:34 WBC (4.3-11.1) K/mcL RBC (3.82-4.97) M/mcL Hgb (11.5-15.4) g/dL Hct (35.3-44.9) % MCV (83.0-100.0) fL MCH (28.0-33.3) pg MCHC (31.6-35.5) g/dL RDW (11.5-14.5) % Plt Count (140-400) K/mcL MPV (9.4-12.4) fL PT (9.4-12.1) Seconds INR APTT (26.0-36.0) Seconds Sodium (136-145) mEq/L Potassium (3.5-5.1) mEq/L Chloride (98-107) mEq/L Carbon Dioxide (23-29) mEq/L BUN (8-23) mg/dL Creatinine (0.60-1.20) mg/dL Est GFR ( Amer) (> 60) Est GFR (Non-Af Amer) (> 60) BUN/Creatinine Ratio (6-26) Glucose (70-105) mg/dL POC Glucose (70-99) mg/dL Calculated Osmolality (280-300) Lactic Acid 0.9 (0.5-2.2) mmol/L Calcium (8.6-10.3) mg/dL Troponin I (< 0.04) ng/mL B-Natriuretic Peptide (Less than 100) pg/mL Urine Color (Yellow) Urine Clarity (Clear) Urine pH (5.0-8.0) pH Units Ur Specific [place] (1.010-1.025) Urine Protein (Neg-Trace) mg/dL Urine Glucose (UA) (Normal) mg/dL Urine Ketones (Negative) mg/dL Urine Blood (Negative) Urine Nitrite (Negative) Urine Bilirubin (Negative) Urine Urobilinogen (Normal) mg/dL Ur Leukocyte Esterase (Negative) Ur Culture Indicated? (NO) Attestation Statement - Attestation Attestation: I examined this patient and my medical decision-making was reviewed with the Resident Physician. I agree with the documented findings, disposition and treatment plan as described except to the extent set forth below. [id number] time provided Patient arrives by EMS stating her symptoms are worsening and have been present for at least 2 days now.
--- NOTE | 2018-06-14 13:27 | Emergency Department Note ---
Disposition Clinical Impression: Facial numbness, Left arm numbness Pneumonia Qualifiers: Pneumonia type: due to unspecified organism Laterality: bilateral Lung location: lower lobe of lung Qualified Code(s): J18.1 - Lobar pneumonia, unspecified organism Disposition: Admitted As Inpatient Condition: Fair Neuro HPI - General Chief Complaint: ED Neuro Symptoms/Deficit Stated Complaint: Stroke Time Seen by Provider: 06/14/18 13:15 Source: EMS Mode of arrival: EMS Limitations: no limitations Nursing Notes Reviewed: Yes Vital Signs Reviewed: Yes - History of Present Illness HPI Narrative: 67-year-old female presents to the ER via EMS with a complaint of left sided numbness. Reports symptoms started on Monday. Reportedly family told her she was slurring words then. That improved however she woke up today with worsening numbness to her left side. Denies prior history of stroke. Denies any recent illness. She did feel short of breath today. Denies any vomiting or diarrhea. Noted to be 93% upon arrival. No other complaints. Onset of Symptoms Date: 06/12/18 Symptom Onset Unknown: No Location: left face, left arm, left leg History of same: No Severity: mild Quality: numbness Symptoms Improving: No Improves with: none Worsens with: time On Anticoagulants: No Associated symptoms: Reports: chest pain, shortness of breath Treatments Prior to Arrival: none - Related Data Home Medications: Home Medications Medication Instructions Recorded Confirmed RX: Budesonide [Entocort EC] 3 mg PO BID PRN 11/30/15 01/15/17 RX: Doxepin HCl 25 mg PO HS 11/30/15 01/15/17 RX: Omeprazole [PriLOSEC] 20 mg PO DAILY PRN 11/30/15 01/15/17 RX: Venlafaxine XR (24 HR) 150 mg PO HS 06/27/16 01/15/17 [Effexor Xr] RX: Aspirin Enteric Coated 325 mg PO BID PRN 01/15/17 01/15/17 [Aspirin EC] RX: Docusate [Colace] 100 mg PO BID PRN 01/15/17 01/15/17 RX: Quetiapine Fumarate [Seroquel] 100 mg PO HS 01/15/17 01/15/17 Previous Rx's Medication Instructions Recorded RX: clonazePAM [Klonopin] 1 mg PO TID PRN #30 tablet 05/06/16 RX: HYDROcodone/Acet 5/325 mg 1 tab PO Q6H PRN #12 tablet 01/16/17 [[place] 5-325 mg] RX: Zolpidem [Ambien] 5 mg PO HS PRN #7 tablet 01/16/17 Allergies/Adverse Reactions: Allergies Allergy/AdvReac Type Severity Reaction Status Date / Time celecoxib [From Celebrex] Allergy Rash Verified 06/27/16 14:52 All systems ED: reviewed and negative except as stated. Constitutional: Denies: fever Cardiovascular: Reports: chest pain Respiratory: Reports: dyspnea Neurological: Reports: headache, paresthesias. Denies: weakness Past Medical History - Past Medical History Attestation: Yes The following information was validated with the patient. 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 - Social History Smoking Status: Current every day smoker Smokeless Tobacco Status: No Alcohol use: Reports: occasionally Drug use: Reports: none Physical Exam - General Limitations: no limitations General appearance: alert, in no apparent distress - Head Head exam: atraumatic, normocephalic, normal inspection - Eye Eye exam: Present: normal appearance, PERRL, EOMI - ENT ENT exam: normal exam - Neck Neck exam: Present: normal inspection - Chest Chest inspection: Present: normal inspection, symmetric chest wall rise - Respiratory Respiratory exam: Present: normal lung sounds bilaterally - Cardiovascular Cardiovascular exam: Present: regular rate, normal rhythm, normal heart sounds - Abdominal Exam Abdominal exam: Present: soft, Non-Tender. Absent: tenderness, distention, rigidity - Extremities Exam Extremities exam: Present: normal inspection, full ROM - Expanded Upper Extremity Exam Shoulder exam: Present: normal inspection, full ROM Arm exam: Present: normal inspection, full ROM Elbow exam: Present: normal inspection, full ROM Forearm/Wrist exam: Present: normal inspection, full ROM Hand exam: Present: normal inspection, full ROM - Expanded Lower Extremity Exam Hip/Pelvis exam: Present: normal inspection, full ROM Upper leg exam: Present: normal inspection, full ROM Knee exam: Present: normal inspection, full ROM Lower leg exam: Present: normal inspection, full ROM Ankle exam: Present: normal inspection, full ROM Foot/toe exam: Present: normal inspection, full ROM Neurovascular/Tendon exam: Absent: motor deficit - Neurological Exam Neurological exam: Present: alert, CN II-XII intact (With the exception of the left fifth cranial nerve sensory distribution) - Expanded Neurological Exam Speech: Present: fluid speech Cranial nerves: EOM function (II, III, IV, ): Normal, facial sensation (V): Abnormal Left, spinal accessory function (XI): Normal, tongue deviation (XII): Normal Motor strength - LUE: 5/5 Motor strength - RUE: 5/5 Motor strength - LLE: 5/5 Motor strength - RLE: 5/5 Sensory exam upper extremity: light touch: Abnormal Left Sensory exam lower extremity: light touch: Normal Coma Scale Eye Opening: Spontaneous Coma Scale Motor Response: Obeys Commands Coma Scale Verbal Response: Oriented Coma Scale Total: 15 - Skin Skin exam: Present: warm, dry Course Course Narrative: Patient seen and examined. Vital signs reviewed. Plan for CT imaging, EKG and chest x-ray given her atypical pain, labs, urinalysis, likely admission. - Reevaluation(s) Reevaluation #1: Patient was 89% on room air. Saturation well on 2 L. Discussed results of imaging labs to patient. Plan to admit for stroke rule out as well as [facility] pneumonia. Lactate ordered as well as blood cultures. 1 L of IV fluids and Levaquin ordered as well. Vital Signs Temperature 98.5 F 06/14/18 13:15 Pulse Rate 85 06/14/18 13:15 Respiratory Rate 19 06/14/18 13:15 Blood Pressure 120/107 06/14/18 13:15 O2 Sat by Pulse Oximetry 94 06/14/18 13:15 Temperature 98.5 F 06/14/18 13:15 Pulse Rate 80 06/14/18 15:22 Respiratory Rate 19 06/14/18 14:33 Blood Pressure 136/66 06/14/18 15:22 O2 Sat by Pulse Oximetry 96 06/14/18 15:22 Oxygen Delivery Oxygen Delivery Nasal Cannula Neuro Symptoms/Deficit - MDM Narrative Medical decision making narrative: 67-year-old female presenting with left-sided numbness now for 3 days. She has no other neurologic deficits and is mentating appropriately. Her head CT is unremarkable. Also noted to have hypoxia here with chest x-ray suggestive of pneumonia. Labs are grossly unremarkable. She is hemodynamically stable. She was given Levaquin for her pneumonia. Admitted to the hospitalist service. - Lab Data Lab results reviewed: Yes I reviewed the patient's lab results. Result diagrams: 06/14/18 14:45 06/14/18 14:45 Lab Results 06/14/18 06/14/18 06/14/18 Range/Units 14:23 14:31 14:45 WBC 12.1 H (4.3-11.1) K/mcL RBC 4.90 (3.82-4.97) M/mcL Hgb 15.8 H (11.5-15.4) g/dL Hct 48.1 H (35.3-44.9) % MCV 98.2 (83.0-100.0) fL MCH 32.2 (28.0-33.3) pg MCHC 32.8 (31.6-35.5) g/dL RDW 15.0 H (11.5-14.5) % Plt Count 286 (140-400) K/mcL MPV 9.6 (9.4-12.4) fL PT (9.4-12.1) Seconds INR APTT (26.0-36.0) Seconds Sodium (136-145) mEq/L Potassium (3.5-5.1) mEq/L Chloride (98-107) mEq/L Carbon Dioxide (23-29) mEq/L BUN (8-23) mg/dL Creatinine (0.60-1.20) mg/dL Est GFR ( Amer) (> 60) Est GFR (Non-Af Amer) (> 60) BUN/Creatinine Ratio (6-26) Glucose (70-105) mg/dL POC Glucose 105 H (70-99) mg/dL Calculated Osmolality (280-300) Lactic Acid (0.5-2.2) mmol/L Calcium (8.6-10.3) mg/dL Troponin I (< 0.04) ng/mL B-Natriuretic Peptide (Less than 100) pg/mL Urine Color Yellow (Yellow) Urine Clarity Clear (Clear) Urine pH 7.5 (5.0-8.0) pH Units Ur Specific [place] 1.017 (1.010-1.025) Urine Protein Negative (Neg-Trace) mg/dL Urine Glucose (UA) Normal (Normal) mg/dL Urine Ketones Negative (Negative) mg/dL Urine Blood Negative (Negative) Urine Nitrite Negative (Negative) Urine Bilirubin Negative (Negative) Urine Urobilinogen Normal (Normal) mg/dL Ur Leukocyte Esterase Negative (Negative) Ur Culture Indicated? NO (NO) 06/14/18 06/14/18 06/14/18 Range/Units 14:45 14:45 14:45 WBC (4.3-11.1) K/mcL RBC (3.82-4.97) M/mcL Hgb (11.5-15.4) g/dL Hct (35.3-44.9) % MCV (83.0-100.0) fL MCH (28.0-33.3) pg MCHC (31.6-35.5) g/dL RDW (11.5-14.5) % Plt Count (140-400) K/mcL MPV (9.4-12.4) fL PT 10.2 (9.4-12.1) Seconds INR 0.9 APTT 38.3 H (26.0-36.0) Seconds Sodium 141 (136-145) mEq/L Potassium 4.1 (3.5-5.1) mEq/L Chloride 107 (98-107) mEq/L Carbon Dioxide 30 H (23-29) mEq/L BUN 17 (8-23) mg/dL Creatinine 0.68 (0.60-1.20) mg/dL Est GFR ( Amer) > 60 (> 60) Est GFR (Non-Af Amer) > 60 (> 60) BUN/Creatinine Ratio 25 (6-26) Glucose 102 (70-105) mg/dL POC Glucose (70-99) mg/dL Calculated Osmolality 294 (280-300) Lactic Acid (0.5-2.2) mmol/L Calcium 9.4 (8.6-10.3) mg/dL Troponin I < 0.03 (< 0.04) ng/mL B-Natriuretic Peptide 29 (Less than 100) pg/mL Urine Color (Yellow) Urine Clarity (Clear) Urine pH (5.0-8.0) pH Units Ur Specific [place] (1.010-1.025) Urine Protein (Neg-Trace) mg/dL Urine Glucose (UA) (Normal) mg/dL Urine Ketones (Negative) mg/dL Urine Blood (Negative) Urine Nitrite (Negative) Urine Bilirubin (Negative) Urine Urobilinogen (Normal) mg/dL Ur Leukocyte Esterase (Negative) Ur Culture Indicated? (NO) 06/14/18 Range/Units 15:34 WBC (4.3-11.1) K/mcL RBC (3.82-4.97) M/mcL Hgb (11.5-15.4) g/dL Hct (35.3-44.9) % MCV (83.0-100.0) fL MCH (28.0-33.3) pg MCHC (31.6-35.5) g/dL RDW (11.5-14.5) % Plt Count (140-400) K/mcL MPV (9.4-12.4) fL PT (9.4-12.1) Seconds INR APTT (26.0-36.0) Seconds Sodium (136-145) mEq/L Potassium (3.5-5.1) mEq/L Chloride (98-107) mEq/L Carbon Dioxide (23-29) mEq/L BUN (8-23) mg/dL Creatinine (0.60-1.20) mg/dL Est GFR ( Amer) (> 60) Est GFR (Non-Af Amer) (> 60) BUN/Creatinine Ratio (6-26) Glucose (70-105) mg/dL POC Glucose (70-99) mg/dL Calculated Osmolality (280-300) Lactic Acid 0.9 (0.5-2.2) mmol/L Calcium (8.6-10.3) mg/dL Troponin I (< 0.04) ng/mL B-Natriuretic Peptide (Less than 100) pg/mL Urine Color (Yellow) Urine Clarity (Clear) Urine pH (5.0-8.0) pH Units Ur Specific [place] (1.010-1.025) Urine Protein (Neg-Trace) mg/dL Urine Glucose (UA) (Normal) mg/dL Urine Ketones (Negative) mg/dL Urine Blood (Negative) Urine Nitrite (Negative) Urine Bilirubin (Negative) Urine Urobilinogen (Normal) mg/dL Ur Leukocyte Esterase (Negative) Ur Culture Indicated? (NO) - Radiology Data Radiology results reviewed: Yes I reviewed the patient's radiology results. Head CT 06/14/18 13:37 IMPRESSION: Stable CT brain with no acute intracranial abnormality. D/ / Daija Arnold MD / Daija Arnold MD Interpreting Provider: Daija Arnold MD Chest X-Ray 06/14/18 14:13 IMPRESSION: Bilateral lower lobe infiltrates possibly representing pneumonia D/ / Jaime Najera MD / Jaime Najera MD Interpreting Provider: Jaime Najera MD - EKG Data EKG attestation: Yes I reviewed and interpreted this EKG. EKG results narrative: EKG demonstrates sinus rhythm with a rate of 65 beats or minute. Normal axis. Normal intervals. Normal R-wave progression. No gross ST elevations or depressions. No acute ischemic findings. No old EKG for comparison. NIH Stroke Scale - Level of Consciousness LOC: Alert - LOC Questions LOC Questions: Answers both correctly - LOC Commands LOC Commands: Performs both correctly - Best Gaze Best Gaze: Normal - Visual Visual: No visual loss - Facial Palsy Facial Palsy: Minor asymmetry on smiling, flattened nasolabial fold - Motor Arms Motor Arm-Left: No drift for 10 seconds Motor Arm-Right: No drift for 10 seconds - Motor Legs Motor Leg-Left: No drift for 5 seconds Motor Leg-Right: No drift for 5 seconds - Limb Ataxia Limb Ataxia: Absent of affected limb too weak to perform exam - Sensory Sensory: Mild to moderate loss, "not as sharp" - Best Language Best Language: No aphasia - Dysarthria Dysarthria: Normal - Extinction and Inattention Extinction and Inattention: Normal - NIHSS Total Score NIHSS Total Score: 2 TPA Checklist - LKW: 3-4.5 hrs Add. Warnings/Precautions Patient/family understanding: The patient/family members have been counseled and understood the risk, benefit, and alternatives of treatment. Niko Lima.B.A.R. Situation: Demographics, MOA Background: Presenting Complaint, Relevant PMH, Meds, & Allergies Assessment: Vital Signs, Course and respsone to treatment, Exam Concerns, Patient/Family Expectation, Pertinant Lab Results Recommendation: Barrier(s) to disposition, Recommendation based on pending studies, treatments, or consults Niko Report Given to: Dr. Piedad Pope Repor Time: 16:19
[2018-06-14 14:40] LABS: Bilirubin,Urine Negative (Negative); Blood,Urine Negative (Negative); Clarity,Urine Clear (Clear); Color,Urine Yellow (Yellow); Glucose,Urine (UA) Normal (Normal); Ketones,Urine Negative (Negative); Leukocyte Esterase,Urine Negative (Negative); Nitrite,Urine Negative (Negative); PH,Urine 7.5 pH Units (5.0-8.0); Protein,Urine Negative (Neg-Trace); Specific Gravity,Urine 1.017 (1.010-1.025); Urobilinogen,Urine Normal (Normal)
[2018-06-14 14:58] LABS: Hematocrit 48.1 % (35.3-44.9); Hemoglobin 15.8 g/dL (11.5-15.4); Mean Corpuscular HGB Conc 32.8 g/dL (31.6-35.5); Mean Corpuscular Hemoglobin 32.2 pg (28.0-33.3); Mean Corpuscular Volume 98.2 fL (83.0-100.0); Mean Platelet Volume 9.6 fL (9.4-12.4); Platelet Count 286 K/mcL (140-400)
[2018-06-14 15:06] LABS: INR 0.9; Prothrombin Time 10.2 Seconds (9.4-12.1)
[2018-06-14 15:08] LABS: Activated Partial Thrombo Time 38.3 Seconds (26.0-36.0)
[2018-06-14] MEDS ORDERED: Levofloxacin 750 MG/150 ML 750 MG/150 ML BAG IVPB ONE (15:20)
[2018-06-14] MEDS ORDERED: 0.9 % Sodium Chloride 1,000 ML IVC ONE (15:20)
[2018-06-14 15:23] LABS: BUN/Creatinine Ratio 25 (6-26); Blood Urea Nitrogen 17 mg/dL (8-23); Calcium 9.4 mg/dL (8.6-10.3); Carbon Dioxide 30 mEq/L (23-29); Chloride 107 mEq/L (98-107); Glucose 102 mg/dL (70-105); Osmolality,Calculated 294 (280-300); Potassium 4.1 mEq/L (3.5-5.1); Sodium 141 mEq/L (136-145); Troponin I < 0.03 ng/mL (< 0.04); eGFR For Non-African Americans > 60 (> 60)
[2018-06-14] MEDS ORDERED: Naloxone 0.4 MG/ML INJ IVP PRN (16:33)
[2018-06-14] MEDS ORDERED: Acetaminophen 325 MG TABLET PO PRN (16:33)
[2018-06-14] MEDS ORDERED: *HR* Promethazine 25 MG/ML VIAL IVP PRN (17:34)
--- NOTE | 2018-06-14 17:54 | Internal Med History&Physical ---
Date of Encounter: 06/14/18 Time of Encounter: 17:43 Internal Medicine - H&P: HPI Chief complaint: L sided numbness Admitted From: Emergency Dept Plans for Post Hospital Care: Home History of present illness: Ms. West is a 67 year old female past medical history of aortic aneurysm hypertension mitral valve prolapse bipolar depression current smoker patient presented to [facility] ED with complaints of left-sided numbness and tingling. She has been experiencing symptoms since Monday. She states that her left face all the way down to her left leg feel like "pins and needles" denies any recent falls or trauma denies any previous history of stroke or seizure. She states that she has been having difficulty swallowing however during assessment patient is drinking a cup of coffee without difficulty She reports that she has been experiencing some abdominal pain as well denies any nausea vomiting or diarrhea. According to ER records patient was complaining of shortness of breath today and that she was 93% on room air. Patient denies any cough fevers or chills-ER note reports that she does have chest pain with cough however patient reports to me that she is experiencing abdominal pain that is diffuse. CT of head with no intracranial abnormalities-chest x-ray did show bilateral lateral lower lobe infiltrates lab work does show a slight elevation in white count urinalysis unremarkable troponins negative EKG was sinus rhythm. Currently she is alert and appropriate following commands continues to complain of numbness and tingling to left side of her face however left arm and leg cast resolved she does have a slightly left-sided headache she describes as dull no vision changes cranial nerves II through XII are intact she is unable to raise her right leg however she states this is chronic and that she is wheelchair-bound at home she has been admitted for further workup and evaluation of pneumonia, rule out CVA. Currently she is hemodynamically stable at this time does not appear to be in any distress Past Med Surg Social Fam HX - Past Medical History Medical history: aortic aneurysm, arthritis, GERD, valvular heart disease Additional medical history: normal dexa, chronic knee pain Psychiatric history: bipolar, depression, PTSD - Past Surgical History Surgical History: knee replacement (Seven surgeries on right knee), other (Breast biopsy on right breast (benign) and biopsy of right jaw (benign); tonsillectomy) Additional surgical history: mass removed from throat, 7 right knee replacements. - Social History Smoking Status: Current every day smoker Smokeless Tobacco Status: No Alcohol use: occasionally Drug use: none - Family History Mother Family Member Ethnicity: Non- Living Status: Hx Family Cardiac Disorders: Yes (aortic aneurysm, HTN) Hx Family Respiratory Disorders: No Hx Family Cancer: Yes (Breast cancer) Hx Family GI Disorders: No Hx Family Endocrine Disorder: No Hx Family Neuromuscular Disorders: No Hx Family Neurologic Disorders: No Hx Family HEENT Disorders: No Hx Family Autoimmune Disorders: No Father Adopted: No Family Member Ethnicity: Non- Living Status: Hx Family Cardiac Disorders: Yes (DC) Hx Family Respiratory Disorders: No Hx Family Cancer: No Hx Family GI Disorders: No Hx Family Endocrine Disorder: No Hx Family Neuromuscular Disorders: No Hx Family Neurologic Disorders: No Hx Family HEENT Disorders: No Hx Family Autoimmune Disorders: No Internal Medicine - H&P: Meds Doxepin HCl 25 mg PO HS 11/30/15 [History] Omeprazole [PriLOSEC] 20 mg PO DAILY PRN 11/30/15 [History] clonazePAM [Klonopin] 1 mg PO TID PRN #30 tablet 05/06/16 [Rx] Venlafaxine XR (24 HR) [Effexor Xr] 150 mg PO HS 06/27/16 [History] Aspirin Enteric Coated [Aspirin EC] 325 mg PO BID PRN 01/15/17 [History] Docusate [Colace] 100 mg PO BID PRN 01/15/17 [History] HYDROcodone/Acet 5/325 mg [[place] 5-325 mg] 1 tab PO Q6H PRN #12 tablet 01/16/17 [Rx] Zolpidem [Ambien] 5 mg PO HS PRN #7 tablet 01/16/17 [Rx] Budesonide [Entocort EC] 3 mg PO BID 06/14/18 [History] Quetiapine Fumarate [Seroquel] 200 mg PO HS 06/14/18 [History] Allergy/AdvReac Type Severity Reaction Status Date / Time celecoxib [From Celebrex] Allergy Rash Verified 06/27/16 14:52 All Systems PM: A 10-system review of systems was performed and is negative for pertinent fin dings except as documented above in the HPI. - Constitutional Constitutional: no chills, no fever(s), no night sweats - EENT Eyes: no change in vision, no discharge, no pain, no photophobia Nose, mouth and throat: dysphagia, no nasal discharge, no neck pain, no sore throat - Respiratory Respiratory: no cough, no dyspnea, no wheezing, no excessive phlegm production - Gastrointestinal Gastrointestinal: abdominal pain - Genitourinary Genitourinary: no change in urinary stream, no dysuria, no flank pain, no hematuria - Musculoskeletal Musculoskeletal ROS IM: numbness, tingling - Integumentary Integumentary IM: no rash, no unusual bruising - Neurological Neurological ROS: numbness, tingling - Hematologic/Lymphatic Hematologic/Lymphatic: no easy bruising - Constitutional Vitals: Temp Pulse Resp BP Pulse Ox 98.6 F 87 16 137/73 99 06/14/18 17:11 06/14/18 17:11 06/14/18 17:11 06/14/18 17:11 06/14/18 17:11 General appearance: Present: A&O X 3, morbidly obese Exam: . - Head Head exam: Present: atraumatic, normocephalic - Eye Eye exam: Present: PERRL, conjuntiva pink, sclera anicteric Pupils: Present: PERRL - Neck Neck exam general surgery: Present: supple, trachea midline. Absent: lymphadenopathy - Respiratory Respiratory exam: Present: CTAB. Absent: accessory muscle use, rales, rhonchi, wheezes - Cardiovascular Cardiovascular exam: Present: RRR, +S1, +S2. Absent: diastolic murmur, gallop, rubs, systolic murmur - GI/Abdominal GI/Abdominal exam: Present: normal bowel sounds, soft, no peritoneal signs. Absent: distended, tenderness - Extremities Exam Extremities exam: Present: warm, radial pulses palpable and symmetrical. Absent: calf tenderness, cyanotic, pedal edema - Neurological Exam Neurological exam: Present: CN II-XII intact, oriented X3, no focal deficits. Absent: pronater drift, facial droop, speech deficit Additional comments: unable to raise R leg - Skin Skin exam: Present: dry, intact Internal Med - H&P Results - Labs CBC & Chem 7: 06/14/18 14:45 06/14/18 14:45 Labs: Short CBC 06/14/18 Range/Units 14:45 WBC 12.1 H (4.3-11.1) K/mcL Hgb 15.8 H (11.5-15.4) g/dL Hct 48.1 H (35.3-44.9) % Plt Count 286 (140-400) K/mcL BMP 06/14/18 14:45 Sodium 141 Potassium 4.1 Chloride 107 Carbon Dioxide 30 H BUN 17 Creatinine 0.68 Glucose 102 Calcium 9.4 Cardiac Enzymes 06/14/18 Range/Units 14:45 Troponin I < 0.03 (< 0.04) ng/mL Urine 06/14/18 Range/Units 14:23 Urine Color Yellow (Yellow) Urine Clarity Clear (Clear) Urine pH 7.5 (5.0-8.0) pH Units Ur Specific [place] 1.017 (1.010-1.025) Urine Protein Negative (Neg-Trace) mg/dL Urine Glucose (UA) Normal (Normal) mg/dL - EKG Data EKG shows normal: sinus rhythm - Impressions ITS Impressions Head CT 06/14/18 13:37 IMPRESSION: Stable CT brain with no acute intracranial abnormality. D/ / Daija Arnold MD / Daija Arnold MD Interpreting Provider: Daija Arnold MD Chest X-Ray 06/14/18 14:13 IMPRESSION: Bilateral lower lobe infiltrates possibly representing pneumonia D/ / Jaime Najera MD / Jaime Najera MD Interpreting Provider: Jaime Najera MD - Assessment and plan (1) CVA (cerebral vascular accident) Current Visit: Yes Status: Suspected Assessment and plan: 1 patient has been experiencing numbness and tingling since Monday symptoms have resolved except patient continues to feel numbness and tingling left side of face she does have a slight headache. No facial droop and slurred speech patient states he has difficulty swallowing however she is drinking coffee without difficulty during Assessment. She is unable to raise her right leg however she states this is chronic cranial nerves II through XII are intact no other focal deficits noted CT of head without any intracranial abnormality NHISS assessment Bedside swallow Check lipid profile-atorvastatin Aspirin daily Cardiac monitoring Carotid imaging completed 2017-with minimal plaque bilaterally Echocardiogram completed 2017 Impressions: LVEF 55%. Normal left ventricular size and systolic function. There is evidence of moderate diastolic dysfunction of the left ventricle. RV is mildly dilated with normal function. Mild mitral regurgitation. No pulmonary hypertension. Will order carotid duplex and echo once MRI is resulted Consult neurology as needed Qualifiers: CVA mechanism: unspecified Qualified Code(s): I63.9 - Cerebral infarction, unspecified (2) Pneumonia Current Visit: Yes Status: Acute Assessment and plan: 1 chest x-ray did not show bilateral lower lobe infiltrates possibly pneumonia patient is a half a pack a day smoker-she is normally not on oxygen and home oxygen saturations are 90-93% on room air. We will continue with oxygen support titrated maintain SPO2 greater than 92% Blood cultures have been drawn we will obtain sputum culture Urine antigen strep and Legionella Start on Rocephin patient is on multiple antipsychotic medications present QTc 445 Duo nebs needed Qualifiers: Pneumonia type: due to unspecified organism Laterality: bilateral Lung location: lower lobe of lung Qualified Code(s): J18.1 - Lobar pneumonia, unspecified organism (3) Bipolar 1 disorder Current Visit: No Status: Chronic Assessment and plan: Patient has a history of bipolar disorder with depression she admits that she has been depressed lately however denies any suicidal or homicidal ideations. W e will continue home medications the patient will follow up with outpatient psychiatry (4) DVT prophylaxis Current Visit: No Status: Acute Assessment and plan: SCDs - Time Spent With Patient Total time spent is greater than 50% in coordination of care (as documented) at patient's floor/unit and/or counseling patient:
[2018-06-14] MEDS ORDERED: Ipratropium/Albuterol Neb 3 ML IH PRN (18:17)
[2018-06-14] MEDS ORDERED: (Budesonide [Entocort Ec] 3 MG) PO PRN (22:07)
[2018-06-14] MEDS: Aspirin 81 MG TAB.CHEW PO SCH (22:26)
[2018-06-14] MEDS ORDERED: Venlafaxine XR (24 HR) 150 MG CAP.ER.24H PO SCH (23:03)
[2018-06-15] MEDS ORDERED: Fluconazole 100 MG TABLET PO ONE (02:34)
[2018-06-15 05:55] LABS: Basophils # 0.1 K/mcL (0.0-0.2); Basophils % 0.8 %; Eosinophils # 0.4 K/mcL (0.0-0.6); Eosinophils % 4.2 %; Hematocrit 46.8 % (35.3-44.9); Hemoglobin 15.1 g/dL (11.5-15.4); Immature Granulocytes % 0.6 % (0-4); Lymphocytes # 1.9 K/mcL (0.6-4.6); Lymphocytes % 19.7 %; Mean Corpuscular HGB Conc 32.3 g/dL (31.6-35.5); Mean Corpuscular Hemoglobin 31.6 pg (28.0-33.3); Mean Corpuscular Volume 97.9 fL (83.0-100.0); Mean Platelet Volume 9.6 fL (9.4-12.4); Monocytes # 1.1 K/mcL (0.0-1.3); Monocytes % 11.7 %; Neutrophils # 6.1 K/mcL (1.6-8.9); Platelet Count 265 K/mcL (140-400); Red Blood Count 4.78 M/mcL (3.82-4.97); Red Cell Distribution Width 14.9 % (11.5-14.5)
[2018-06-15] MEDS: *HR* HYDROcodone/Acet 5/325 mg TABLET PO PRN ×2 (05:55→11:46)
[2018-06-15 06:11] LABS: Chol/HDL Ratio 4.6 (0-4.9)
[2018-06-15 06:28] LABS: BUN/Creatinine Ratio 24 (6-26); Blood Urea Nitrogen 15 mg/dL (8-23); Calcium 8.9 mg/dL (8.6-10.3); Carbon Dioxide 26 mEq/L (23-29); Chloride 109 mEq/L (98-107); Glucose 109 mg/dL (70-105); Osmolality,Calculated 295 (280-300); Potassium 3.8 mEq/L (3.5-5.1); Sodium 142 mEq/L (136-145); eGFR For Non-African Americans > 60 (> 60)
[2018-06-15] MEDS ORDERED: Ipratropium/Albuterol Neb 3 ML IH SCH (08:00)
[2018-06-15] MEDS: Aspirin 81 MG TAB.CHEW PO SCH (08:23)
--- NOTE | 2018-06-15 08:30 | Internal Med Progress Note ---
Hospitalist Progress Note - Encounter Date of Encounter: 06/15/18 Time of Encounter: 08:30 - Subjective Interval History: Patient seen and evaluated this a.m. does not appear to be in any respiratory distress no neurological deficits noted patient denies any numbness or tingling states that her symptoms have resolved. I did review MRI findings with the patient and review treatment plan she verbalized understanding. - Exam Vitals: Temp Pulse Resp BP Pulse Ox 98.4 F 74 18 117/79 87 06/15/18 07:57 06/15/18 07:57 06/15/18 08:16 06/15/18 07:57 06/15/18 08:16 Exam: General appearance: Present: A&O X 3, morbidly obese Exam: - Head Head exam: Present: atraumatic, normocephalic - Eye Eye exam: Present: PERRL, conjuntiva pink, sclera anicteric Pupils: Present: PERRL - Neck Neck exam general surgery: Present: supple, trachea midline. Absent: lymphadenopathy - Respiratory Respiratory exam: Present: CTAB. Absent: accessory muscle use, rales, rhonchi, wheezes - Cardiovascular Cardiovascular exam: Present: RRR, +S1, +S2. Absent: diastolic murmur, gallop, rubs, systolic murmur - GI/Abdominal GI/Abdominal exam: Present: normal bowel sounds, soft, no peritoneal signs. Absent: distended, tenderness - Extremities Exam Extremities exam: Present: warm, radial pulses palpable and symmetrical. Absent: calf tenderness, cyanotic, pedal edema - Neurological Exam Neurological exam: Present: CN II-XII intact, oriented X3, no focal deficits. Absent: pronater drift, facial droop, speech deficit Additional comments: unable to raise R leg - Skin Skin exam: Present: dry, intact - Assessment and Plan (1) CVA (cerebral vascular accident) Current Visit: Yes Status: Suspected Assessment and Plan: 1 patient has been experiencing numbness and tingling since Monday symptoms have resolved except patient continues to feel numbness and tingling left side of face she does have a slight headache. No facial droop and slurred speech patient states he has difficulty swallowing however she is drinking coffee without difficulty during Assessment. She is unable to raise her right leg however she states this is chronic cranial nerves II through XII are intact no other focal deficits noted CT of head without any intracranial abnormality [facility] assessment Bedside swallow Check lipid profile-atorvastatin Aspirin daily Cardiac monitoring Carotid imaging completed 2016-with minimal plaque bilaterally Echocardiogram completed 2016 Impressions: LVEF 55%. Normal left ventricular size and systolic function. There is evidence of moderate diastolic dysfunction of the left ventricle. RV is mildly dilated with normal function. Mild mitral regurgitation. No pulmonary hypertension. Will order carotid duplex and echo once MRI is resulted Consult neurology as needed 06/15 Patient symptoms have resolved MRI was completed-which did show multiple small prior infarcts however nothing acute We will continue with aspirin and statin obtain cardiac echo PT and OT consult (2) Pneumonia Current Visit: Yes Status: Acute Assessment and Plan: 1 chest x-ray did not show bilateral lower lobe infiltrates possibly pneumonia patient is a half a pack a day smoker-she is normally not on oxygen and home oxygen saturations are 90-93% on room air. We will continue with oxygen support titrated maintain SPO2 greater than 92% Blood cultures have been drawn we will obtain sputum culture Urine antigen strep and Legionella Start on Rocephin patient is on multiple antipsychotic medications present QTc 445 Duo nebs needed 06/15 Continue with Rocephin Urine antigens are negative Continue with DuoNeb as needed Oxygen as needed to maintain saturations greater than 92% (3) Bipolar 1 disorder Current Visit: No Status: Chronic Assessment and Plan: Patient has a history of bipolar disorder with depression she admits that she has been depressed lately however denies any suicidal or homicidal ideations. We will continue home medications the patient will follow up with outpatient psychiatry (4) DVT prophylaxis Current Visit: No Status: Acute Assessment and Plan: SCDs (5) Tobacco use Current Visit: Yes Status: Acute Assessment and Plan: Discussed the importance of patient quitting smoking. Patient verbalized understanding however states that she is not ready at this time. Offered nicotine patch which patient declined - Time Spent with Patient Total time spent is greater than 50% in coordination of care (as documented) at patient's floor/unit and/or counseling patient: Internal Medicine: Result - Labs CBC & Chem 7: 06/15/18 05:33 06/15/18 05:33 Labs: Short CBC 06/14/18 06/15/18 Range/Units 14:45 05:33 WBC 12.1 H 9.7 (4.3-11.1) K/mcL Hgb 15.8 H 15.1 (11.5-15.4) g/dL Hct 48.1 H 46.8 H (35.3-44.9) % Plt Count 286 265 (140-400) K/mcL Neutrophils # 6.1 (1.6-8.9) K/mcL BMP 06/14/18 06/15/18 14:45 05:33 Sodium 141 142 Potassium 4.1 3.8 Chloride 107 109 H Carbon Dioxide 30 H 26 BUN 17 15 Creatinine 0.68 0.62 Glucose 102 109 H Calcium 9.4 8.9 Cardiac Enzymes 06/14/18 Range/Units 14:45 Troponin I < 0.03 (< 0.04) ng/mL Urine 06/14/18 Range/Units 14:23 Urine Color Yellow (Yellow) Urine Clarity Clear (Clear) Urine pH 7.5 (5.0-8.0) pH Units Ur Specific Plain 1.017 (1.010-1.025) Urine Protein Negative (Neg-Trace) mg/dL Urine Glucose (UA) Normal (Normal) mg/dL - ABG Interpretation ABG results: PT/INR, D-dimer PT 10.2 Seconds (9.4-12.1) 06/14/18 14:45 - Impressions Impressions Head CT 06/14/18 13:37 IMPRESSION: Stable CT brain with no acute intracranial abnormality. D/ / Daija Arnold MD / Daija Arnold MD Interpreting Provider: Daija Arnold MD Chest X-Ray 06/14/18 14:13 IMPRESSION: Bilateral lower lobe infiltrates possibly representing pneumonia D/ / Jaime Najera MD / Jaime Najera MD Interpreting Provider: Jaime Najera MD Brain MRI 06/14/18 17:18 IMPRESSION: Multifocal small-vessel ischemic change with multiple small prior infarcts No acute infarct or hemorrhage D/ / Luis Miguel Emery / Luis Miguel Emery Interpreting Provider: Luis Miguel Emery Consult Discharge Plan - Plan Referrals: Peace Alcala, [employer] [Primary Care Provider] - (1) CVA (cerebral vascular accident) Qualifiers: CVA mechanism: unspecified Qualified Code(s): I63.9 - Cerebral infarction, unspecified (2) Pneumonia Qualifiers: Pneumonia type: due to unspecified organism Laterality: bilateral Lung location: lower lobe of lung Qualified Code(s): J18.1 - Lobar pneumonia, unspecified organism
[2018-06-15] MEDS ORDERED: cefTRIAXone 1,000 MG in Water for inj. (sterile) 20 ML 10 ML IVP SCH (09:00)
[2018-06-15] MEDS ORDERED: Ipratropium/Albuterol Neb 3 ML IH PRN (09:28)
[2018-06-15 12:18] VITALS: BP 134/74
--- NOTE | 2018-06-15 17:07 | Electrocardiograph Report ---
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
--- NOTE | 2018-06-15 18:18 | Discharge Summary ---
Orders not resulted at time of discharge: Pending orders 06/14/18 15:34 Culture,Blood [BC] Stat 06/14/18 17:41 Culture,Sputum with Gram Stain [RM] Routine 06/15/18 08:30 EV echocardiogram Routine 06/16/18 04:00 Basic Metabolic Panel AM 0400 Complete Blood Count [HEME] AM 0400 06/17/18 04:00 Basic Metabolic Panel AM 0400 Complete Blood Count [HEME] AM 0400 Date of Encounter: 06/15/18 Time of Encounter: 18:14 - Discharge Diagnosis (1) CVA (cerebral vascular accident) Priority: Primary Status: Suspected Qualifiers: CVA mechanism: unspecified Qualified Code(s): I63.9 - Cerebral infarction, unspecified (2) Pneumonia Priority: Secondary Status: Acute Qualifiers: Pneumonia type: due to unspecified organism Laterality: bilateral Lung location: lower lobe of lung Qualified Code(s): J18.1 - Lobar pneumonia, unspecified organism (3) Bipolar 1 disorder Priority: Secondary Status: Chronic (4) DVT prophylaxis Priority: Secondary Status: Acute (5) Tobacco use Priority: Secondary Status: Acute Hospital course: Ms. West is a 67 year old female Ms. West is a 67 year old female past medical history of aortic aneurysm hypertension mitral valve prolapse bipolar depression current smoker patient presented to [facility] ED with complaints of left-sided numbness and tingling. She has been expereincing SOB as well She has been experiencing symptoms since Monday. CT of head with no intracranial abnormalities-chest x-ray did show bilateral lateral lower lobe infiltrates lab work does show a slight elevation in white count urinalysis unremarkable troponins negative EKG was sinus rhythm. Currently she is alert and appropriate - Stroke work up has been negative thus far- MRI show no acute stroke however small old infarcts- She has hypoxia with O2 sats 87-90% on RA- she may need home O2 - however patient is refusing to complete any further testing and is requesting to go home - She needs to help her social insurance administrator reassured her that her daughter is there caring for him but she still would like to leave. I advised her that she is high risk for resp failure and possible she would still like to leave AMA I did give her prescription for Doxycycline and advised her to follow up with PCP - Time Spent with Patient Total time spent providing and/or coordinating discharge services: - Discharge Medications Prescriptions: Doxycycline 100 mg PO BID #10 capsule Home Medications: Doxepin HCl 25 mg PO HS 11/30/15 [History] Venlafaxine XR (24 HR) [Effexor Xr] 150 mg PO HS 06/27/16 [History] Budesonide [Entocort EC] 3 mg PO BID PRN 06/14/18 [History] Quetiapine Fumarate [Seroquel] 200 mg PO HS 06/14/18 [History] Doxycycline 100 mg PO BID #10 capsule 06/15/18 [Rx] Allergies/Adverse Reactions: Allergy/AdvReac Type Severity Reaction Status Date / Time celecoxib [From Celebrex] Allergy Rash Verified 06/14/18 21:57 Date of admission: 06/14/18 17:00 Primary care physician: Peace Alcala CNP Consults: 06/14/18 17:36 Consult to Physical Therapy [CONS] Routine Comment: Evaluate, develop and implement POC Reason for Consult: weakness Does patient have active BEDREST order?: No Is patient medically & hemodynamically stable?: Yes Patient assessed for mobility or mobilized this visit?: No 06/14/18 17:37 Consult to Occupational Therapy [CONS] Routine Comment: Evaluate, develop and implement POC Reason for Consult: weakness Does patient have active BEDREST order?: No Is patient medically & hemodynamically stable?: Yes Patient assessed for mobility or mobilized this visit?: No 06/15/18 08:22 Consult to Nurse Navigator [CONS] Routine Comment: PNEUMONIA - Constitutional Vitals: Temp Pulse Resp BP Pulse Ox 98.1 F 72 18 134/74 90 06/15/18 12:15 06/15/18 12:15 06/15/18 12:15 06/15/18 12:15 06/15/18 12:15 General appearance: Present: A&O X 3, morbidly obese Exam: General appearance: Present: A&O X 3, morbidly obese Exam: - Head Head exam: Present: atraumatic, normocephalic - Eye Eye exam: Present: PERRL, conjuntiva pink, sclera anicteric Pupils: Present: PERRL - Neck Neck exam general surgery: Present: supple, trachea midline. Absent: lymphadenopathy - Respiratory Respiratory exam: Present: CTAB. Absent: accessory muscle use, rales, rhonchi, wheezes - Cardiovascular Cardiovascular exam: Present: RRR, +S1, +S2. Absent: diastolic murmur, gallop, rubs, systolic murmur - GI/Abdominal GI/Abdominal exam: Present: normal bowel sounds, soft, no peritoneal signs. Absent: distended, tenderness - Extremities Exam Extremities exam: Present: warm, radial pulses palpable and symmetrical. Absent: calf tenderness, cyanotic, pedal edema - Neurological Exam Neurological exam: Present: CN II-XII intact, oriented X3, no focal deficits. Absent: pronater drift, facial droop, speech deficit Additional comments: unable to raise R leg - Skin Skin exam: Present: dry, intact - Patient Status Disposition: Left Against Medical Advice Condition: Fair - Discharge Instructions Follow Up With: Peace Alcala CNP [Primary Care Provider] -
[2018-06-15] MEDS ORDERED: Venlafaxine XR (24 HR) 150 MG CAP.ER.24H PO SCH (21:00)
== END 2018-06-15 19:07 | disposition left against medical advice (07) | DRG 64 ==
LOC: EMEROOARM 13:13 → 3BNU 13:13
PROVIDERS: ADMIT Internal Medicine; ATTEND Internal Medicine

== ENCOUNTER 2020-12-03 01:06 | Observation (INO) ==
[2020-12-03] MEDS ORDERED: Nitroglycerin 0.4 MG TAB.SUBL SL ONE (01:21)
[2020-12-03 01:37] LABS: Hemoglobin 15.7 g/dL (11.5-15.4); Red Cell Distribution Width 14.3 % (11.5-14.5)
[2020-12-03 01:38] LABS: Basophils # 0.1 K/mcL (0.0-0.2); Basophils % 0.8 %; Eosinophils # 0.6 K/mcL (0.0-0.6); Eosinophils % 5.5 %; Immature Granulocytes % 0.4 % (0-4); Immature Platelets 2.4 % (1.1-6.1); Lymphocytes % 27.2 %; Mean Corpuscular HGB Conc 32.7 g/dL (31.6-35.5); Mean Corpuscular Hemoglobin 32.2 pg (28.0-33.3); Mean Corpuscular Volume 98.4 fL (83.0-100.0); Mean Platelet Volume 9.7 fL (9.4-12.4); Monocytes # 0.9 K/mcL (0.0-1.3); Monocytes % 8.3 %; Neutrophils # 6.3 K/mcL (1.6-8.9); Platelet Count 278 K/mcL (140-400); Red Blood Count 4.88 M/mcL (3.82-4.97); Segmented Neutrophils % 57.8 %; White Blood Count 10.9 K/mcL (4.3-11.1)
[2020-12-03 01:44] LABS: INR 0.9; Prothrombin Time 10.6 Seconds (9.4-12.1)
[2020-12-03 01:47] LABS: Activated Partial Thrombo Time 22.9 Seconds (26.0-36.0)
[2020-12-03] MEDS ORDERED: 0.9 % Sodium Chloride 1,000 ML ONE (01:50)
[2020-12-03] MEDS ORDERED: *HR* FentaNYL (PF) 100 MCG/2 ML VIAL IVP ONE (01:52)
[2020-12-03 02:04] LABS: BUN/Creatinine Ratio 26 (6-26); Blood Urea Nitrogen 19 mg/dL (8-23); Calcium 8.7 mg/dL (8.6-10.3); Carbon Dioxide 24 mEq/L (23-29); Chloride 107 mEq/L (98-107); Glucose 108 mg/dL (70-105); Osmolality,Calculated 291 (280-300); Sodium 139 mEq/L (136-145); Troponin I < 0.03 ng/mL (< 0.04); eGFR For African Americans > 60 (> 60); eGFR For Non-African Americans > 60 (> 60)
[2020-12-03] MEDS ORDERED: 0.9 % Sodium Chloride 1,000 ML IVC ONE (02:08)
[2020-12-03] MEDS ORDERED: Ondansetron 4 MG/2 ML VIAL IVP ONE (02:37)
[2020-12-03] MEDS ORDERED: Acetaminophen 325 MG TABLET PO PRN (04:20)
[2020-12-03] MEDS ORDERED: Naloxone 0.4 MG/ML INJ IVP PRN (04:20)
[2020-12-03] MEDS ORDERED: Ondansetron 4 MG/2 ML VIAL IVP PRN (04:20)
[2020-12-03] MEDS ORDERED: Melatonin 3 MG TABLET PO PRN (04:20)
[2020-12-03] MEDS: Pantoprazole 40 MG VIAL IVP SCH ×2 (04:54→17:09)
[2020-12-03] MEDS: Morphine Sulfate 2 MG/ML SYRINGE IVP PRN ×2 (04:54→06:46)
[2020-12-03] MEDS: *HR* Heparin 5,000 UNIT/ML VIAL SQ SCH ×2 (05:42→17:02)
[2020-12-03] MEDS ORDERED: Regadenoson 0.4 MG/5 ML SYRINGE IVP ONE (06:34)
[2020-12-03] MEDS ORDERED: Isovue-370 500 ML BOTTLE IVP ONE (08:32)
[2020-12-03 08:44] LABS: Chol/HDL Ratio 5.1 (0-4.9); Cholesterol 221 mg/dL (< 200); HDL Cholesterol 43 mg/dL (40-59); LDL Cholesterol,Calculated 138 mg/dL (< 100); Magnesium 1.9 mg/dL (1.6-2.6); Triglycerides 200 mg/dL (< 150); Troponin I < 0.03 ng/mL (< 0.04)
[2020-12-03 08:57] LABS: Thyroid Stimulating Hormone 2.971 mcIU/mL (0.340-5.600)
[2020-12-03 14:21] VITALS: BP 112/70
[2020-12-03 14:33] LABS: Estimated Average Glucose 117 mg/dl; Hemoglobin A1C 5.7 %
[2020-12-03] MEDS ORDERED: Aspirin Enteric Coated 81 MG Tablet PO SCH (15:00)
[2020-12-03] MEDS ORDERED: Metoprolol XL (24 HR) Succ 25 MG TAB.ER.24H PO SCH (15:45)
[2020-12-03] MEDS ORDERED: Isosorbide MONOnitrate (24 HR) 30 MG TAB.ER.24H PO SCH (15:45)
== END 2020-12-03 17:57 | disposition left against medical advice (07) ==
LOC: EMEROOARM 01:06 → 3ANU 01:06 → SUATTDRO 03:26 → 3ANU 03:40
PROVIDERS: ADMIT Internal Medicine; ATTEND Internal Medicine